=== PATIENT | male | born 1955 | race African-American/Black ===

== ENCOUNTER → 2016-09-16 | Outpatient (CLI) | payer MEDICARE, OTHER ==
[~2016-09-16] MED LIST: AMLO10TA2 PO; ASPI-247 PO; B-COCAP4 PO; BENA40TA2 PO; CLOP75TA41 PO; FURO40TA4 PO; HYDR-2651 PO; METF-312 PO; SIMV-13 PO
[2016-09-16 08:42] LABS: Albumin 3.7 g/dL (3.4-5.0); BUN/Creatinine Ratio 17.4; Calcium 9.2 mg/dL (8.5-10.1); Phosphorus 3.8 mg/dL (2.6-4.90); Potassium 3.8 mmol/L (3.5-5.1)
[2016-09-16 08:47] LABS: Basophils # (auto) 0.1 uL; Basophils % (auto) 0.6 % (0.0-2.0); DEFINITIVE VIEW TRANSMISSION; Eosinophils # (auto) 0.1 uL; Eosinophils % (auto) 1.5 % (0.0-7.0); Hematocrit 48.2 % (41.0-53.0); Hemoglobin 15.3 g/dL (13.5-17.5); Lymphocytes # (auto) 2.1 uL; Lymphocytes % (auto) 22.6 % (10.0-50.0); Mean Corpuscular Hemoglobin 25.3 pg (28.0-32.0); Mean Corpuscular Hgb Conc. 31.7 g/dL (32.0-36.0); Mean Corpuscular Volume 79.8 fL (80.0-100.0); Mean Platelet Volume 9.4 fL (7.4-10.4); Monocytes # (auto) 0.8 uL; Monocytes % (auto) 8.7 % (0.0-12.0); Neutrophils # (auto) 6.3 uL; Neutrophils % (auto) 66.6 % (37.0-80.0); Platelet Count (auto) 184 10^3/uL (140-450); Red Cell Distribution Width 16.5 % (11.6-16.0); White Blood Cell 9.4 10^3/uL (4.4-10.8)
== END | disposition home or self-care (01) ==
LOC: LAB 07:29
PROVIDERS: ATTEND Internal Medicine
DX: E11.9 Type 2 diabetes mellitus without complications (principal); I10 Essential (primary) hypertension
CPT/HCPCS: 36415; 80069; 83036; 85025; 85049

== ENCOUNTER → 2016-12-11 | Outpatient (CLI) | payer MEDICARE, OTHER ==
[2016-12-11 08:38] LABS: Urine RBC None Seen /hpf (0 - 3)
[2016-12-11 10:01] LABS: Albumin 3.3 g/dL (3.4-5.0); Bilirubin, Total 0.3 mg/dL (0.2-1.0); Potassium 3.8 mmol/L (3.5-5.1); Total Protein 7.4 g/dL (6.4-8.2)
[2016-12-11 10:41] LABS: Urine Bilirubin Negative (Negative); Urine Blood Negative /uL (Negative); Urine Color Yellow (Yellow); Urine Glucose Normal (Normal); Urine Ketone Negative (Negative); Urine Nitrite Negative (Negative); Urine Squamous Epithelial Cell FEW /hpf (<5); Urine Urobilinogen Normal (Negative)
== END | disposition home or self-care (01) ==
LOC: LAB 07:28
PROVIDERS: ATTEND Internal Medicine
DX: Z00.00 Encounter for general adult medical examination without abnormal findings (principal)
CPT/HCPCS: 36415; 80053; 80061; 81001; 82043; 83036

== ENCOUNTER → 2017-06-06 | Outpatient (CLI) | payer MEDICARE, OTHER ==
[~2017-06-06] MED LIST changes: -BENA40TA2 PO; +BENA40TA7 PO; -HYDR-2651 PO; +HYDR25TA35 PO; -METF-312 PO; +METF-370 PO
[2017-06-06 09:47] LABS: Urine Bilirubin Negative (Negative); Urine Blood Negative /uL (Negative); Urine Color Yellow (Yellow); Urine Glucose Normal (Normal); Urine Ketone Negative (Negative); Urine Nitrite Negative (Negative); Urine RBC 10 /hpf (0 - 3); Urine Squamous Epithelial Cell FEW /hpf (<5); Urine Urobilinogen Normal (Negative)
[2017-06-06 10:36] LABS: Albumin 3.6 g/dL (3.4-5.0); Bilirubin, Total 0.4 mg/dL (0.2-1.0); Calcium 8.8 mg/dL (8.5-10.1); Potassium 3.7 mmol/L (3.5-5.1); Total Protein 7.1 g/dL (6.4-8.2)
== END | disposition home or self-care (01) ==
LOC: LAB 08:35
PROVIDERS: ATTEND Internal Medicine
DX: E11.9 Type 2 diabetes mellitus without complications (principal); I10 Essential (primary) hypertension; E78.2 Mixed hyperlipidemia; N39.0 Urinary tract infection, site not specified; N40.0 Benign prostatic hyperplasia without lower urinary tract symptoms
CPT/HCPCS: 36415; 80053; 80061; 81001; 83036; 84153

== ENCOUNTER 2017-07-17 15:17 | Emergency (ER) | payer MEDICARE, OTHER ==
[~2017-07-17] VITALS: Ht 180.3 cm; Wt 117.9 kg
[2017-07-17 16:13] LABS: Eosinophils # (auto) 0.1 uL; Mean Corpuscular Hemoglobin 26.4 pg (28.0-32.0)
[2017-07-17 16:19] LABS: Albumin 3.3 g/dL (3.4-5.0); BUN/Creatinine Ratio 23.5; Bilirubin, Total 0.6 mg/dL (0.2-1.0); Calcium 8.9 mg/dL (8.5-10.1); Potassium 3.6 mmol/L (3.5-5.1); Total Protein 7.8 g/dL (6.4-8.2)
[2017-07-17 16:33] LABS: Neutrophils % (auto) 72.3 % (37.0-80.0); White Blood Cell 11.1 10^3/uL (4.4-10.8)
[2017-07-17 16:34] LABS: Basophils % (auto) 0.5 % (0.0-2.0); Eosinophils % (auto) 1.2 % (0.0-7.0); Lymphocytes % (auto) 16.7 % (10.0-50.0); Monocytes % (auto) 9.3 % (0.0-12.0)
[2017-07-17 16:35] LABS: Lymphocytes # (auto) 1.9 uL; Nucleated Red Blood Cells % 0.1 %
[2017-07-17 16:36] LABS: Basophils # (auto) 0.1 uL; Hematocrit 42.3 % (41.0-53.0); Mean Corpuscular Volume 79.9 fL (80.0-100.0)
[2017-07-17 16:37] LABS: Mean Platelet Volume 8.4 fL (6.9-10.8); Platelet Count (auto) 158 10^3/uL (140-450); Red Cell Distribution Width 15.3 % (11.8-14.3)
[2017-07-17 18:13] VITALS: BP 159/81
== END 2017-07-17 17:01 | disposition home or self-care (01) ==
LOC: ER 15:23
DX: H10.9 Unspecified conjunctivitis (principal); M79.1 Myalgia; E11.9 Type 2 diabetes mellitus without complications; E78.5 Hyperlipidemia, unspecified; I10 Essential (primary) hypertension; Z79.82 Long term (current) use of aspirin; Z79.899 Other long term (current) drug therapy; Z86.73 Personal history of transient ischemic attack (TIA), and cerebral infarction without residual deficits
CPT/HCPCS: 36415; 71020; 80053; 82150; 82962; 83690; 85025

== ENCOUNTER 2017-07-19 11:25 | Emergency (ER) | payer MEDICARE, OTHER ==
[~2017-07-19] VITALS: Ht 180.3 cm; Wt 117.9 kg
[2017-07-19 12:56] VITALS: BP 166/85
[2017-07-19] MEDS ORDERED: TETRACAINE HCL 0.5% OPTH(EYE) SOLN 4ML EACHEYE ONE (13:15)
[2017-07-19] MEDS ORDERED: FLUORESCEIN SOD 1 MG TEST STRIP OP ONE (13:15)
== END 2017-07-19 14:13 | disposition home or self-care (01) ==
LOC: ER 11:25
DX: S05.02XA Injury of conjunctiva and corneal abrasion without foreign body, left eye, initial encounter (principal); I10 Essential (primary) hypertension; E11.9 Type 2 diabetes mellitus without complications; E78.5 Hyperlipidemia, unspecified; Z79.82 Long term (current) use of aspirin; Z86.73 Personal history of transient ischemic attack (TIA), and cerebral infarction without residual deficits; X58.XXXA Exposure to other specified factors, initial encounter; Y93.89 Activity, other specified; Y92.89 Other specified places as the place of occurrence of the external cause; Y99.8 Other external cause status

== ENCOUNTER → 2017-12-16 | Outpatient (CLI) | payer MEDICARE, OTHER ==
[2017-12-16 08:09] LABS: Basophils # (auto) 0.1 uL; Basophils % (auto) 0.6 % (0.0-2.0); Lymphocytes # (auto) 1.8 uL; Mean Corpuscular Volume 78.5 fL (80.0-100.0); Monocytes # (auto) 0.6 uL; Monocytes % (auto) 7.5 % (0.0-12.0); Neutrophils % (auto) 67.2 % (37.0-80.0)
[2017-12-16 08:11] LABS: Eosinophils # (auto) 0.1 uL; Eosinophils % (auto) 1.8 % (0.0-7.0); Hematocrit 48.1 % (41.0-53.0); Hemoglobin 15.6 g/dL (13.5-17.5); Lymphocytes % (auto) 22.9 % (10.0-50.0); Mean Corpuscular Hemoglobin 25.4 pg (28.0-32.0); Mean Corpuscular Hgb Conc. 32.4 g/dL (32.0-36.0); Neutrophils # (auto) 5.3 uL; Nucleated Red Blood Cells % 0.2 %; Platelet Count (auto) 189 10^3/uL (140-450); Red Blood Cells 6.13 10^6/uL (4.5-5.90); Red Cell Distribution Width 16.1 % (11.8-14.3)
[2017-12-16 09:17] LABS: BUN/Creatinine Ratio 18.9; Bilirubin, Total 0.5 mg/dL (0.2-1.0); Calcium 9.1 mg/dL (8.5-10.1); Potassium 4.1 mmol/L (3.5-5.1); Total Protein 8.1 g/dL (6.4-8.2)
== END | disposition home or self-care (01) ==
LOC: LAB 07:44
PROVIDERS: ATTEND Physician Assistant
DX: Z12.5 Encounter for screening for malignant neoplasm of prostate (principal); I12.9 Hypertensive chronic kidney disease with stage 1 through stage 4 chronic kidney disease, or unspecified chronic kidney disease; E11.22 Type 2 diabetes mellitus with diabetic chronic kidney disease; N18.3 Chronic kidney disease, stage 3 (moderate); E78.00 Pure hypercholesterolemia, unspecified; E78.5 Hyperlipidemia, unspecified; N40.0 Benign prostatic hyperplasia without lower urinary tract symptoms; N52.9 Male erectile dysfunction, unspecified; Z79.899 Other long term (current) drug therapy; Z79.82 Long term (current) use of aspirin
CPT/HCPCS: 36415; 80053; 80061; 82306; 83036; 84153; 84403; 85025

== ENCOUNTER → 2017-12-24 | Outpatient (CLI) | payer MEDICARE, OTHER | END | disposition home or self-care (01) | LOC: LAB 09:27 | PROVIDERS: ATTEND Physician Assistant | DX: E34.9 Endocrine disorder, unspecified (principal); I12.9 Hypertensive chronic kidney disease with stage 1 through stage 4 chronic kidney disease, or unspecified chronic kidney disease; E11.22 Type 2 diabetes mellitus with diabetic chronic kidney disease; N18.3 Chronic kidney disease, stage 3 (moderate); E78.00 Pure hypercholesterolemia, unspecified; E78.5 Hyperlipidemia, unspecified; Z79.82 Long term (current) use of aspirin; Z79.899 Other long term (current) drug therapy | CPT/HCPCS: 36415; 84403 ==

== ENCOUNTER 2018-05-10 09:33 | Inpatient (IN) | payer MEDICARE, OTHER ==
[~2018-05-10] VITALS: Ht 180.3 cm; Wt 108.9 kg
[~2018-05-10 09:33] MED LIST changes: +AMLO10TA12 PO; -AMLO10TA2 PO; +HYDR-4296 PO; -HYDR25TA35 PO
[2018-05-10] MEDS ORDERED: SODIUM CHLORIDE 0.9% 1,000 ML IV ONE (11:43)
[2018-05-10 12:35] LABS: Basophils % (auto) 0.4 % (0.0-2.0); Eosinophils # (auto) 0.1 uL; Mean Corpuscular Hemoglobin 25.8 pg (28.0-32.0); Mean Corpuscular Hgb Conc. 32.6 g/dL (32.0-36.0)
[2018-05-10 12:37] LABS: Basophils # (auto) 0.1 uL; Eosinophils % (auto) 0.5 % (0.0-7.0); Hematocrit 39.2 % (41.0-53.0); Hemoglobin 12.8 g/dL (13.5-17.5); Lymphocytes # (auto) 1.4 uL; Lymphocytes % (auto) 12.3 % (10.0-50.0); Monocytes # (auto) 1.3 uL; Monocytes % (auto) 11.2 % (0.0-12.0); Neutrophils # (auto) 8.8 uL; Neutrophils % (auto) 75.6 % (37.0-80.0); Platelet Count (auto) 233 10^3/uL (140-450); Red Blood Cells 4.97 10^6/uL (4.5-5.90); White Blood Cell 11.6 10^3/uL (4.4-10.8)
[2018-05-10 13:13] LABS: Albumin 3.1 g/dL (3.4-5.0); BUN/Creatinine Ratio 12.7; Bilirubin, Total 0.7 mg/dL (0.2-1.0); Magnesium 2.7 mg/dL (1.6-2.6); Potassium 3.3 mmol/L (3.5-5.1); Total Protein 7.7 g/dL (6.4-8.2); Uric Acid 8.5 mg/dL (3.5-7.2)
[2018-05-10] MEDS ORDERED: NITROGLYCERIN 0.4 MG SL TAB SL PRN (17:00)
[2018-05-10] MEDS: InsuLIN REG 1unit/0.01ml Soln (100units/ml) SC SCH ×2 (17:00→22:24)
[2018-05-10] MEDS ORDERED: MORPHINE SULF INJ 2 MG/ML SYRINGE 1ML IV PRN ×2 (17:00)
[2018-05-10] MEDS ORDERED: ACETAMINOPHEN 325 MG TAB PO PRN (17:00)
[2018-05-10] MEDS ORDERED: DEXTROSE (50%) 50ML SYRG IV PRN (17:00)
[2018-05-10] MEDS ORDERED: ONDANSETRON HCL 4 MG/2 ML VIAL IV PRN (17:00)
[2018-05-10] MEDS ORDERED: TEMAZEPAM 15 MG CAP PO PRN (17:00)
[2018-05-10] MEDS ORDERED: DOCUSATE SOD 100 MG CAP PO PRN (17:00)
[2018-05-10] MEDS: ACCU-CHEK COMFORT CURVE STRIP VI SCH ×2 (17:21→22:24)
[2018-05-10] MEDS: HYDROcodone-ACET 5/325MG TAB PO PRN (17:51)
[2018-05-10 17:54] LABS: Urine Bacteria FEW /hpf (None Seen); Urine Blood Negative /uL (Negative); Urine Hyaline Cast FEW /lpf (0 - 2); Urine Specific Gravity 1.012 (1.001-1.035); Urine WBC 4 /hpf (0 - 3)
[2018-05-10 20:00] VITALS: BP 129/79
[2018-05-10 22:00] VITALS: BP 147/70
[2018-05-10] MEDS: SODIUM CHLOR 0.9% PF (SALINE LOCK) 10ML VIAL/SYR IV SCH (22:22)
[2018-05-10] MEDS: hydrALAZINE HCL 25 MG TAB PO SCH (22:22)
[2018-05-10] MEDS: ATORVASTATIN 20 MG TAB PO SCH (22:23)
[2018-05-10] MEDS: FAMOTIDINE 20 MG TAB PO SCH (22:25)
[2018-05-11] MEDS ORDERED: GLIP-116 PO (00:28)
[2018-05-11] MEDS ORDERED: GLIP-115 PO (00:28)
[2018-05-11] MEDS: HYDROcodone-ACET 5/325MG TAB PO PRN ×4 (01:36→20:43)
[2018-05-11 05:00] VITALS: BP 142/50
[2018-05-11] MEDS: SODIUM CHLOR 0.9% PF (SALINE LOCK) 10ML VIAL/SYR IV SCH ×3 (05:36→20:54)
[2018-05-11] MEDS: hydrALAZINE HCL 25 MG TAB PO SCH ×3 (05:37→20:56)
[2018-05-11 06:13] LABS: Basophils # (auto) 0.1 uL; Eosinophils # (auto) 0.1 uL; Eosinophils % (auto) 0.6 % (0.0-7.0); Monocytes # (auto) 1.1 uL; Neutrophils # (auto) 8.3 uL; Nucleated Red Blood Cells % 0.1 %
[2018-05-11 06:15] LABS: Basophils % (auto) 0.6 % (0.0-2.0); Hemoglobin 12.5 g/dL (13.5-17.5); Lymphocytes # (auto) 1.5 uL; Lymphocytes % (auto) 13.7 % (10.0-50.0); Mean Corpuscular Hemoglobin 26.5 pg (28.0-32.0); Mean Corpuscular Hgb Conc. 33.7 g/dL (32.0-36.0); Mean Corpuscular Volume 78.5 fL (80.0-100.0); Monocytes % (auto) 10.2 % (0.0-12.0); Neutrophils % (auto) 74.9 % (37.0-80.0); Platelet Count (auto) 222 10^3/uL (140-450); Red Blood Cells 4.71 10^6/uL (4.5-5.90); Red Cell Distribution Width 14.8 % (11.8-14.3); White Blood Cell 11.1 10^3/uL (4.4-10.8)
[2018-05-11] MEDS: InsuLIN REG 1unit/0.01ml Soln (100units/ml) SC SCH ×3 (06:28→17:00)
[2018-05-11] MEDS: ACCU-CHEK COMFORT CURVE STRIP VI SCH ×4 (06:29→20:55)
[2018-05-11 06:32] LABS: Albumin 2.7 g/dL (3.4-5.0); BUN/Creatinine Ratio 14.8; Bilirubin, Total 0.5 mg/dL (0.2-1.0); Calcium 8.8 mg/dL (8.5-10.1); Potassium 3.6 mmol/L (3.5-5.1)
[2018-05-11 08:09] VITALS: BP 147/70
[2018-05-11] MEDS ORDERED: LORazepam 2MG/ML-1ML VIAL IV PRN (08:45)
[2018-05-11] MEDS: Glucerna Carbsteady SHAKE Vanilla 8oz PO SCH ×3 (10:12→17:32)
[2018-05-11] MEDS: MULTIPLE VITAMIN TAB PO SCH (10:22)
[2018-05-11] MEDS: FAMOTIDINE 20 MG TAB PO SCH ×2 (10:22→20:55)
[2018-05-11] MEDS: B-COMPLEX W/ C & FOLIC ACID(NEPHROVITE TAB) PO SCH (10:22)
[2018-05-11] MEDS: ASPirin-EC 325mg tab PO SCH (10:22)
[2018-05-11] MEDS: FUROSEMIDE 40 MG TAB PO SCH (10:24)
[2018-05-11] MEDS: BENAZEPRIL HCL 10 MG TAB PO SCH (10:24)
[2018-05-11] MEDS: amLODIPine BESYLATE 5 MG TAB PO SCH (10:25)
[2018-05-11] MEDS: CLOPIDOGREL BISULFATE 75 MG TAB PO SCH (10:26)
[2018-05-11 12:09] VITALS: BP 106/53
[2018-05-11 17:09] VITALS: BP 126/74
[2018-05-11] MEDS: ATORVASTATIN 20 MG TAB PO SCH (20:55)
[2018-05-11 21:48] VITALS: BP 134/89
[2018-05-12] MEDS: InsuLIN REG 1unit/0.01ml Soln (100units/ml) SC SCH ×5 (00:22→21:48)
[2018-05-12 04:33] VITALS: BP 151/69
[2018-05-12] MEDS: SODIUM CHLOR 0.9% PF (SALINE LOCK) 10ML VIAL/SYR IV SCH ×3 (05:54→21:47)
[2018-05-12] MEDS: ACCU-CHEK COMFORT CURVE STRIP VI SCH ×4 (05:56→21:50)
[2018-05-12] MEDS: hydrALAZINE HCL 25 MG TAB PO SCH ×3 (06:08→21:48)
[2018-05-12] MEDS: HYDROcodone-ACET 5/325MG TAB PO PRN ×3 (06:08→19:36)
[2018-05-12 08:51] VITALS: BP 148/51
[2018-05-12] MEDS: Glucerna Carbsteady SHAKE Vanilla 8oz PO SCH ×3 (09:12→18:05)
[2018-05-12] MEDS: BENAZEPRIL HCL 10 MG TAB PO SCH (09:13)
[2018-05-12] MEDS: B-COMPLEX W/ C & FOLIC ACID(NEPHROVITE TAB) PO SCH (09:14)
[2018-05-12] MEDS: FUROSEMIDE 40 MG TAB PO SCH (09:14)
[2018-05-12] MEDS: FAMOTIDINE 20 MG TAB PO SCH ×2 (09:14→21:48)
[2018-05-12] MEDS: MULTIPLE VITAMIN TAB PO SCH (09:14)
[2018-05-12] MEDS: CLOPIDOGREL BISULFATE 75 MG TAB PO SCH (09:15)
[2018-05-12] MEDS: amLODIPine BESYLATE 5 MG TAB PO SCH (09:15)
[2018-05-12] MEDS: ASPirin-EC 325mg tab PO SCH (09:15)
[2018-05-12 13:00] VITALS: BP 150/60
[2018-05-12 16:45] VITALS: BP 136/77
[2018-05-12 21:41] VITALS: BP 126/82
[2018-05-12] MEDS: ATORVASTATIN 20 MG TAB PO SCH (21:48)
[2018-05-13 05:04] VITALS: BP 154/87
[2018-05-13] MEDS: hydrALAZINE HCL 25 MG TAB PO SCH ×3 (05:52→21:59)
[2018-05-13] MEDS: SODIUM CHLOR 0.9% PF (SALINE LOCK) 10ML VIAL/SYR IV SCH ×3 (05:52→21:59)
[2018-05-13] MEDS: InsuLIN REG 1unit/0.01ml Soln (100units/ml) SC SCH ×4 (05:53→21:59)
[2018-05-13] MEDS: ACCU-CHEK COMFORT CURVE STRIP VI SCH ×4 (05:53→22:00)
[2018-05-13 05:56] LABS: Basophils # (auto) 0.1 uL; Basophils % (auto) 0.6 % (0.0-2.0); Eosinophils # (auto) 0.1 uL; Eosinophils % (auto) 0.7 % (0.0-7.0); Hematocrit 38.7 % (41.0-53.0); Hemoglobin 12.8 g/dL (13.5-17.5); Lymphocytes # (auto) 1.4 uL; Lymphocytes % (auto) 12.3 % (10.0-50.0); Mean Corpuscular Hemoglobin 26.1 pg (28.0-32.0); Mean Corpuscular Hgb Conc. 33.1 g/dL (32.0-36.0); Mean Corpuscular Volume 79.1 fL (80.0-100.0); Monocytes # (auto) 1.1 uL; Monocytes % (auto) 9.8 % (0.0-12.0); Neutrophils % (auto) 76.6 % (37.0-80.0); Nucleated Red Blood Cells % 0.1 %; Platelet Count (auto) 269 10^3/uL (140-450); Red Blood Cells 4.89 10^6/uL (4.5-5.90); White Blood Cell 11.7 10^3/uL (4.4-10.8)
[2018-05-13 06:27] LABS: Potassium 3.6 mmol/L (3.5-5.1)
[2018-05-13 06:32] LABS: BUN/Creatinine Ratio 16.1; Calcium 8.9 mg/dL (8.5-10.1)
[2018-05-13 08:34] VITALS: BP 145/81
[2018-05-13] MEDS: Glucerna Carbsteady SHAKE Vanilla 8oz PO SCH ×3 (09:42→17:31)
[2018-05-13] MEDS: MULTIPLE VITAMIN TAB PO SCH (09:42)
[2018-05-13] MEDS: FAMOTIDINE 20 MG TAB PO SCH ×2 (09:45→21:59)
[2018-05-13] MEDS: FUROSEMIDE 40 MG TAB PO SCH (09:45)
[2018-05-13] MEDS: B-COMPLEX W/ C & FOLIC ACID(NEPHROVITE TAB) PO SCH (09:45)
[2018-05-13] MEDS: CLOPIDOGREL BISULFATE 75 MG TAB PO SCH (09:45)
[2018-05-13] MEDS: ASPirin-EC 325mg tab PO SCH (09:45)
[2018-05-13] MEDS: amLODIPine BESYLATE 5 MG TAB PO SCH (09:46)
[2018-05-13] MEDS: BENAZEPRIL HCL 10 MG TAB PO SCH (09:55)
[2018-05-13] MEDS: HYDROcodone-ACET 5/325MG TAB PO PRN ×3 (09:56→22:00)
[2018-05-13 12:14] VITALS: BP 158/62
[2018-05-13] MEDS ORDERED: methylPREDNISolone SOD SUCC 40 MG/ML VL IV ONE ×2 (13:45→14:15)
[2018-05-13 17:00] VITALS: BP 137/83
[2018-05-13] MEDS: metFORMIN HYDROCHLORIDE 500 MG TAB PO SCH (17:32)
[2018-05-13] MEDS: ATORVASTATIN 20 MG TAB PO SCH (21:59)
[2018-05-13] MEDS: COLCHICINE 0.6 MG CAP PO SCH (21:59)
[2018-05-13] MEDS: methylPREDNISolone SOD SUCC 40 MG/ML VL IV SCH (21:59)
[2018-05-13 22:00] VITALS: BP 150/69
[2018-05-14 05:00] VITALS: BP 165/78
[2018-05-14] MEDS: SODIUM CHLOR 0.9% PF (SALINE LOCK) 10ML VIAL/SYR IV SCH ×3 (06:18→22:27)
[2018-05-14] MEDS: metFORMIN HYDROCHLORIDE 500 MG TAB PO SCH (06:19)
[2018-05-14] MEDS: ACCU-CHEK COMFORT CURVE STRIP VI SCH ×4 (06:19→22:28)
[2018-05-14] MEDS: InsuLIN REG 1unit/0.01ml Soln (100units/ml) SC SCH ×4 (06:19→22:28)
[2018-05-14] MEDS: hydrALAZINE HCL 25 MG TAB PO SCH ×3 (06:19→22:27)
[2018-05-14 06:27] LABS: Basophils # (auto) 0 uL; Eosinophils # (auto) 0 uL; Hematocrit 38.8 % (41.0-53.0); Hemoglobin 12.8 g/dL (13.5-17.5); Lymphocytes # (auto) 0.9 uL; Mean Corpuscular Hemoglobin 25.9 pg (28.0-32.0); Neutrophils # (auto) 14.5 uL; Neutrophils % (auto) 92.1 % (37.0-80.0); White Blood Cell 15.7 10^3/uL (4.4-10.8)
[2018-05-14 06:30] LABS: Basophils % (auto) 0.1 % (0.0-2.0); Lymphocytes % (auto) 5.5 % (10.0-50.0); Mean Corpuscular Volume 78.4 fL (80.0-100.0); Monocytes # (auto) 0.4 uL; Monocytes % (auto) 2.3 % (0.0-12.0); Platelet Count (auto) 307 10^3/uL (140-450); Red Blood Cells 4.95 10^6/uL (4.5-5.90); Red Cell Distribution Width 15.2 % (11.8-14.3)
[2018-05-14 06:49] LABS: BUN/Creatinine Ratio 24.7; Calcium 9.4 mg/dL (8.5-10.1); Potassium 4.1 mmol/L (3.5-5.1)
[2018-05-14 08:00] VITALS: BP 156/95
[2018-05-14 09:00] VITALS: BP 156/95
[2018-05-14] MEDS: HYDROcodone-ACET 5/325MG TAB PO PRN ×2 (09:28→22:28)
[2018-05-14] MEDS: ASPirin-EC 325mg tab PO SCH (09:29)
[2018-05-14] MEDS: BENAZEPRIL HCL 10 MG TAB PO SCH (09:29)
[2018-05-14] MEDS: amLODIPine BESYLATE 5 MG TAB PO SCH (09:29)
[2018-05-14] MEDS: COLCHICINE 0.6 MG CAP PO SCH ×2 (09:29→22:27)
[2018-05-14] MEDS: B-COMPLEX W/ C & FOLIC ACID(NEPHROVITE TAB) PO SCH (09:30)
[2018-05-14] MEDS: FUROSEMIDE 40 MG TAB PO SCH (09:30)
[2018-05-14] MEDS: FAMOTIDINE 20 MG TAB PO SCH ×2 (09:30→22:27)
[2018-05-14] MEDS: MULTIPLE VITAMIN TAB PO SCH (09:30)
[2018-05-14] MEDS: CLOPIDOGREL BISULFATE 75 MG TAB PO SCH (09:30)
[2018-05-14] MEDS: Glucerna Carbsteady SHAKE Vanilla 8oz PO SCH ×3 (09:31→18:41)
[2018-05-14] MEDS: methylPREDNISolone SOD SUCC 40 MG/ML VL IV SCH (09:31)
[2018-05-14] MEDS: METOPROLOL SUCCINATE XL 50 MG TAB PO SCH (10:00)
[2018-05-14] MEDS ORDERED: ADENOSINE 105 MG in GIVE UN-DILUTED 0 ML IV ONE (10:45)
[2018-05-14 12:30] VITALS: BP 146/77
[2018-05-14 17:10] VITALS: BP 149/71
[2018-05-14 21:30] VITALS: BP_SYST 126; BP_SYST 99; BP_DIAS 60; BP_DIAS 82
[2018-05-14] MEDS: ATORVASTATIN 20 MG TAB PO SCH (22:27)
[2018-05-15 05:00] VITALS: BP 126/60
[2018-05-15 06:06] LABS: BUN/Creatinine Ratio 36.3; Calcium 8.9 mg/dL (8.5-10.1); Potassium 3.8 mmol/L (3.5-5.1)
[2018-05-15] MEDS: hydrALAZINE HCL 25 MG TAB PO SCH ×3 (06:16→22:08)
[2018-05-15] MEDS: SODIUM CHLOR 0.9% PF (SALINE LOCK) 10ML VIAL/SYR IV SCH ×3 (06:16→22:08)
[2018-05-15] MEDS: InsuLIN REG 1unit/0.01ml Soln (100units/ml) SC SCH ×4 (06:17→22:10)
[2018-05-15] MEDS: ACCU-CHEK COMFORT CURVE STRIP VI SCH ×4 (06:17→22:10)
[2018-05-15 08:00] VITALS: BP 130/69
[2018-05-15 08:31] VITALS: BP 130/69
[2018-05-15] MEDS: Glucerna Carbsteady SHAKE Vanilla 8oz PO SCH ×3 (09:23→20:16)
[2018-05-15] MEDS: predniSONE 20 MG TAB PO SCH (09:23)
[2018-05-15] MEDS: ASPirin-EC 325mg tab PO SCH (09:24)
[2018-05-15] MEDS: COLCHICINE 0.6 MG CAP PO SCH ×2 (09:24→22:10)
[2018-05-15] MEDS: B-COMPLEX W/ C & FOLIC ACID(NEPHROVITE TAB) PO SCH (09:25)
[2018-05-15] MEDS: MULTIPLE VITAMIN TAB PO SCH (09:25)
[2018-05-15] MEDS: FAMOTIDINE 20 MG TAB PO SCH ×2 (09:27→22:10)
[2018-05-15] MEDS: amLODIPine BESYLATE 5 MG TAB PO SCH (09:27)
[2018-05-15] MEDS: CLOPIDOGREL BISULFATE 75 MG TAB PO SCH (09:28)
[2018-05-15] MEDS: METOPROLOL SUCCINATE XL 50 MG TAB PO SCH (09:28)
[2018-05-15] MEDS: HYDROcodone-ACET 5/325MG TAB PO PRN ×2 (09:29→22:29)
[2018-05-15] MEDS ORDERED: BENAZEPRIL HCL 10 MG TAB PO ONE (12:30)
[2018-05-15 12:40] VITALS: BP 167/94
[2018-05-15 17:27] VITALS: BP 134/76
[2018-05-15 22:02] VITALS: BP 142/89
[2018-05-15] MEDS: RIVAROXABAN 10 MG TAB PO SCH (22:07)
[2018-05-15] MEDS: ATORVASTATIN 20 MG TAB PO SCH (22:10)
[2018-05-16 05:40] VITALS: BP 137/85
[2018-05-16 05:59] LABS: Basophils # (auto) 0 uL; Basophils % (auto) 0.2 % (0.0-2.0); Eosinophils # (auto) 0 uL; Monocytes # (auto) 1.1 uL; Red Blood Cells 4.95 10^6/uL (4.5-5.90)
[2018-05-16 06:01] LABS: Eosinophils % (auto) 0.1 % (0.0-7.0); Hemoglobin 12.4 g/dL (13.5-17.5); Lymphocytes # (auto) 2.1 uL; Lymphocytes % (auto) 15.9 % (10.0-50.0); Mean Corpuscular Hgb Conc. 31.8 g/dL (32.0-36.0); Mean Corpuscular Volume 78.8 fL (80.0-100.0); Monocytes % (auto) 7.9 % (0.0-12.0); Neutrophils # (auto) 10.1 uL; Neutrophils % (auto) 75.9 % (37.0-80.0); Platelet Count (auto) 349 10^3/uL (140-450); Red Cell Distribution Width 15.3 % (11.8-14.3); White Blood Cell 13.3 10^3/uL (4.4-10.8)
[2018-05-16 06:22] LABS: Calcium 8.3 mg/dL (8.5-10.1); Potassium 4.1 mmol/L (3.5-5.1)
[2018-05-16] MEDS: hydrALAZINE HCL 25 MG TAB PO SCH ×3 (06:35→21:35)
[2018-05-16] MEDS: ACCU-CHEK COMFORT CURVE STRIP VI SCH ×4 (06:36→21:36)
[2018-05-16] MEDS: SODIUM CHLOR 0.9% PF (SALINE LOCK) 10ML VIAL/SYR IV SCH ×3 (06:36→21:31)
[2018-05-16] MEDS: InsuLIN REG 1unit/0.01ml Soln (100units/ml) SC SCH ×4 (06:36→21:31)
[2018-05-16 08:00] VITALS: BP 125/76
[2018-05-16 08:47] VITALS: BP 125/76
[2018-05-16] MEDS: MULTIPLE VITAMIN TAB PO SCH (09:30)
[2018-05-16] MEDS: amLODIPine BESYLATE 5 MG TAB PO SCH (09:30)
[2018-05-16] MEDS: BENAZEPRIL HCL 10 MG TAB PO SCH (09:30)
[2018-05-16] MEDS: COLCHICINE 0.6 MG CAP PO SCH ×2 (09:31→21:32)
[2018-05-16] MEDS: predniSONE 20 MG TAB PO SCH (09:31)
[2018-05-16] MEDS: CLOPIDOGREL BISULFATE 75 MG TAB PO SCH (09:31)
[2018-05-16] MEDS: B-COMPLEX W/ C & FOLIC ACID(NEPHROVITE TAB) PO SCH (09:31)
[2018-05-16] MEDS: FAMOTIDINE 20 MG TAB PO SCH ×2 (09:31→21:32)
[2018-05-16] MEDS: METOPROLOL SUCCINATE XL 50 MG TAB PO SCH (09:32)
[2018-05-16] MEDS: HYDROcodone-ACET 5/325MG TAB PO PRN ×2 (09:32→21:38)
[2018-05-16] MEDS: Glucerna Carbsteady SHAKE Vanilla 8oz PO SCH ×3 (09:33→18:01)
[2018-05-16 12:30] VITALS: BP 126/57
[2018-05-16 16:24] VITALS: BP 127/71
[2018-05-16] MEDS: RIVAROXABAN 10 MG TAB PO SCH (17:59)
[2018-05-16] MEDS: ATORVASTATIN 20 MG TAB PO SCH (21:32)
[2018-05-16 22:00] VITALS: BP 144/56
[2018-05-17 04:50] VITALS: BP 167/83
[2018-05-17] MEDS: ACCU-CHEK COMFORT CURVE STRIP VI SCH ×4 (06:16→22:24)
[2018-05-17] MEDS: hydrALAZINE HCL 25 MG TAB PO SCH ×3 (06:16→22:27)
[2018-05-17] MEDS: SODIUM CHLOR 0.9% PF (SALINE LOCK) 10ML VIAL/SYR IV SCH ×3 (06:16→22:23)
[2018-05-17] MEDS: InsuLIN REG 1unit/0.01ml Soln (100units/ml) SC SCH ×4 (06:17→22:24)
[2018-05-17 08:27] VITALS: BP 147/51
[2018-05-17] MEDS: Glucerna Carbsteady SHAKE Vanilla 8oz PO SCH ×3 (08:44→18:09)
[2018-05-17] MEDS: amLODIPine BESYLATE 5 MG TAB PO SCH (09:35)
[2018-05-17] MEDS: B-COMPLEX W/ C & FOLIC ACID(NEPHROVITE TAB) PO SCH (09:35)
[2018-05-17] MEDS: MULTIPLE VITAMIN TAB PO SCH (09:35)
[2018-05-17] MEDS: FAMOTIDINE 20 MG TAB PO SCH ×2 (09:35→22:27)
[2018-05-17] MEDS: CLOPIDOGREL BISULFATE 75 MG TAB PO SCH (09:35)
[2018-05-17] MEDS: COLCHICINE 0.6 MG CAP PO SCH ×2 (09:35→22:27)
[2018-05-17] MEDS: predniSONE 20 MG TAB PO SCH (09:36)
[2018-05-17] MEDS: BENAZEPRIL HCL 10 MG TAB PO SCH (09:36)
[2018-05-17] MEDS: METOPROLOL SUCCINATE XL 50 MG TAB PO SCH (09:39)
[2018-05-17 12:16] VITALS: BP 134/70
[2018-05-17 14:05] LABS: INR 1.07 (0.9-1.15); Partial Thromboplastin Time 26.2 sec (23.78-33.04); Prothrombin Time 11.4 sec (9.27-12.13)
[2018-05-17] MEDS: RIVAROXABAN 10 MG TAB PO SCH (17:12)
[2018-05-17 17:36] VITALS: BP 141/66
[2018-05-17] MEDS: ATORVASTATIN 20 MG TAB PO SCH (22:27)
[2018-05-17] MEDS: HYDROcodone-ACET 5/325MG TAB PO PRN (23:23)
[2018-05-18] MEDS ORDERED: SODIUM CHLORIDE 0.9% 1,000 ML IV ONE
[2018-05-18 04:25] VITALS: BP 157/63
[2018-05-18] MEDS: InsuLIN REG 1unit/0.01ml Soln (100units/ml) SC SCH ×4 (07:00→21:27)
[2018-05-18] MEDS: hydrALAZINE HCL 25 MG TAB PO SCH ×3 (07:19→21:26)
[2018-05-18] MEDS: ACCU-CHEK COMFORT CURVE STRIP VI SCH ×4 (07:19→21:27)
[2018-05-18] MEDS: SODIUM CHLOR 0.9% PF (SALINE LOCK) 10ML VIAL/SYR IV SCH ×3 (07:21→21:25)
[2018-05-18] MEDS: Glucerna Carbsteady SHAKE Vanilla 8oz PO SCH ×3 (08:00→17:46)
[2018-05-18 08:10] VITALS: BP 152/89
[2018-05-18 08:17] VITALS: BP 152/89
[2018-05-18] MEDS: METOPROLOL SUCCINATE XL 50 MG TAB PO SCH (09:46)
[2018-05-18] MEDS: FAMOTIDINE 20 MG TAB PO SCH ×2 (09:47→21:27)
[2018-05-18] MEDS: CLOPIDOGREL BISULFATE 75 MG TAB PO SCH (09:48)
[2018-05-18] MEDS: COLCHICINE 0.6 MG CAP PO SCH ×2 (09:48→21:26)
[2018-05-18] MEDS: amLODIPine BESYLATE 5 MG TAB PO SCH (09:48)
[2018-05-18] MEDS: B-COMPLEX W/ C & FOLIC ACID(NEPHROVITE TAB) PO SCH (09:49)
[2018-05-18] MEDS: MULTIPLE VITAMIN TAB PO SCH (09:49)
[2018-05-18] MEDS: predniSONE 20 MG TAB PO SCH (09:49)
[2018-05-18] MEDS: BENAZEPRIL HCL 10 MG TAB PO SCH (09:50)
[2018-05-18] MEDS ORDERED: IODIXANOL 320MG/ML 100ML BTL IV ONE (10:51)
[2018-05-18] MEDS ORDERED: LIDOCAINE 2%HCL (LOCAL ANESTH.) INJ 20ML MDV ONE (10:58)
[2018-05-18 12:24] VITALS: BP 134/75
[2018-05-18] MEDS ORDERED: fentaNYL CITRATE 100 MCG/2 ML VL ONE (12:31)
[2018-05-18] MEDS ORDERED: ANGIOMAX 250 MG VIAL IV ONE (12:31)
[2018-05-18] MEDS ORDERED: SODIUM CHL 0.9% 50 ML ONE (12:32)
[2018-05-18] MEDS ORDERED: MIDAZOLAM HCL 1MG/1ML-2 ML VIAL ONE (12:32)
[2018-05-18 16:52] VITALS: BP 151/75
[2018-05-18] MEDS: RIVAROXABAN 10 MG TAB PO SCH (17:46)
[2018-05-18] MEDS: ATORVASTATIN 20 MG TAB PO SCH (21:27)
[2018-05-18 22:00] VITALS: BP 152/78
[2018-05-19 05:31] VITALS: BP 140/79
[2018-05-19] MEDS: SODIUM CHLOR 0.9% PF (SALINE LOCK) 10ML VIAL/SYR IV SCH ×3 (06:18→22:20)
[2018-05-19] MEDS: InsuLIN REG 1unit/0.01ml Soln (100units/ml) SC SCH ×4 (06:19→22:28)
[2018-05-19] MEDS: ACCU-CHEK COMFORT CURVE STRIP VI SCH ×4 (06:19→22:20)
[2018-05-19] MEDS: hydrALAZINE HCL 25 MG TAB PO SCH ×3 (06:19→22:20)
[2018-05-19] MEDS: Glucerna Carbsteady SHAKE Vanilla 8oz PO SCH ×3 (08:00→17:30)
[2018-05-19] MEDS: FAMOTIDINE 20 MG TAB PO SCH ×2 (09:17→22:28)
[2018-05-19] MEDS: COLCHICINE 0.6 MG CAP PO SCH ×2 (09:18→22:20)
[2018-05-19] MEDS: MULTIPLE VITAMIN TAB PO SCH (09:18)
[2018-05-19] MEDS: CLOPIDOGREL BISULFATE 75 MG TAB PO SCH (09:19)
[2018-05-19 09:26] VITALS: BP 139/71
[2018-05-19] MEDS: amLODIPine BESYLATE 5 MG TAB PO SCH (09:28)
[2018-05-19] MEDS: BENAZEPRIL HCL 10 MG TAB PO SCH (09:31)
[2018-05-19] MEDS: B-COMPLEX W/ C & FOLIC ACID(NEPHROVITE TAB) PO SCH (09:33)
[2018-05-19] MEDS: METOPROLOL SUCCINATE XL 50 MG TAB PO SCH (09:35)
[2018-05-19] MEDS ORDERED: predniSONE 20 MG TAB PO SCH (10:00)
[2018-05-19 12:30] VITALS: BP 146/52
[2018-05-19 16:46] VITALS: BP 132/92
[2018-05-19] MEDS: RIVAROXABAN 10 MG TAB PO SCH (17:28)
[2018-05-19] MEDS: ATORVASTATIN 20 MG TAB PO SCH (22:20)
[2018-05-19 22:22] VITALS: BP 143/75
[2018-05-19] MEDS: HYDROcodone-ACET 5/325MG TAB PO PRN (22:29)
[2018-05-20 04:48] VITALS: BP 134/71
[2018-05-20] MEDS: hydrALAZINE HCL 25 MG TAB PO SCH ×2 (05:59→14:00)
[2018-05-20] MEDS: SODIUM CHLOR 0.9% PF (SALINE LOCK) 10ML VIAL/SYR IV SCH ×2 (05:59→14:00)
[2018-05-20] MEDS: ACCU-CHEK COMFORT CURVE STRIP VI SCH ×3 (05:59→17:00)
[2018-05-20] MEDS: InsuLIN REG 1unit/0.01ml Soln (100units/ml) SC SCH ×3 (06:31→17:00)
[2018-05-20] MEDS: MEPERIDINE HCL (50 MG/ML) 1 ML VIAL IV PRN ×6 (07:30→17:58)
[2018-05-20 08:00] VITALS: BP 134/81
[2018-05-20] MEDS: Glucerna Carbsteady SHAKE Vanilla 8oz PO SCH ×3 (08:00→17:45)
[2018-05-20] MEDS: HYDROcodone-ACET 5/325MG TAB PO PRN ×3 (09:20→17:00)
[2018-05-20] MEDS: MULTIPLE VITAMIN TAB PO SCH (09:40)
[2018-05-20] MEDS: B-COMPLEX W/ C & FOLIC ACID(NEPHROVITE TAB) PO SCH (09:41)
[2018-05-20] MEDS: FAMOTIDINE 20 MG TAB PO SCH (09:41)
[2018-05-20] MEDS: CLOPIDOGREL BISULFATE 75 MG TAB PO SCH (09:41)
[2018-05-20] MEDS: METOPROLOL SUCCINATE XL 50 MG TAB PO SCH (09:42)
[2018-05-20] MEDS: COLCHICINE 0.6 MG CAP PO SCH (09:42)
[2018-05-20] MEDS: amLODIPine BESYLATE 5 MG TAB PO SCH (09:43)
[2018-05-20] MEDS: BENAZEPRIL HCL 10 MG TAB PO SCH (09:43)
[2018-05-20] MEDS ORDERED: predniSONE 20 MG TAB PO SCH (10:00)
[2018-05-20 12:00] VITALS: BP 136/82
[2018-05-20 14:35] VITALS: BP 139/81
[2018-05-20 17:31] VITALS: BP 136/99
[2018-05-20] MEDS: RIVAROXABAN 10 MG TAB PO SCH (18:00)
[2018-05-20] MEDS ORDERED: MEPERIDINE HCL (50 MG/ML) 1 ML VIAL IM ONE (18:00)
== END 2018-05-20 19:35 | disposition home health service (06) | DRG 246 ==
LOC: ER 09:33 → TELE 09:34 → TELE-WESTW 18:55
PROVIDERS: ADMIT Internal Medicine; ATTEND Internal Medicine
PROC: 0S9C3ZZ Drainage of Right Knee Joint, Percutaneous Approach (ICD-10-PCS; principal; 2018-05-16)
PROC: 027034Z Dilation of Coronary Artery, One Artery with Drug-eluting Intraluminal Device, Percutaneous Approach (ICD-10-PCS; 2018-05-18)
PROC: 4A023N7 Measurement of Cardiac Sampling and Pressure, Left Heart, Percutaneous Approach (ICD-10-PCS; 2018-05-18)
PROC: B2111ZZ Fluoroscopy of Multiple Coronary Arteries using Low Osmolar Contrast (ICD-10-PCS; 2018-05-18)
DX: I25.10 Atherosclerotic heart disease of native coronary artery without angina pectoris (principal); E43 Unspecified severe protein-calorie malnutrition; N17.0 Acute kidney failure with tubular necrosis; I69.354 Hemiplegia and hemiparesis following cerebral infarction affecting left non-dominant side; M10.361 Gout due to renal impairment, right knee; E87.6 Hypokalemia; W18.30XA Fall on same level, unspecified, initial encounter; N18.3 Chronic kidney disease, stage 3 (moderate); I12.9 Hypertensive chronic kidney disease with stage 1 through stage 4 chronic kidney disease, or unspecified chronic kidney disease; D50.9 Iron deficiency anemia, unspecified; E11.21 Type 2 diabetes mellitus with diabetic nephropathy; E11.22 Type 2 diabetes mellitus with diabetic chronic kidney disease; E66.01 Morbid (severe) obesity due to excess calories; E78.5 Hyperlipidemia, unspecified; E83.41 Hypermagnesemia; F17.200 Nicotine dependence, unspecified, uncomplicated; I48.91 Unspecified atrial fibrillation; I08.0 Rheumatic disorders of both mitral and aortic valves; M54.5 Low back pain; I70.0 Atherosclerosis of aorta; M19.90 Unspecified osteoarthritis, unspecified site; M43.16 Spondylolisthesis, lumbar region; M25.461 Effusion, right knee; M51.36 Other intervertebral disc degeneration, lumbar region; R29.6 Repeated falls; Z79.02 Long term (current) use of antithrombotics/antiplatelets; Z79.82 Long term (current) use of aspirin; Z79.899 Other long term (current) drug therapy; Z82.49 Family history of ischemic heart disease and other diseases of the circulatory system; Z91.81 History of falling; Z95.5 Presence of coronary angioplasty implant and graft; Z68.33 Body mass index [BMI] 33.0-33.9, adult
CPT/HCPCS: 36415; 70450; 71045; 72131; 73562; 73700; 80048; 80053; 81001; 82533; 82962; 83036; 83540; 83735; 84443; 84550; 85025; 85610; 85730; 86850; 86900; 86901; 87205; 89051; 89060; 92928; 93005; 93306; 93458; 93886; 97110; 97163; 97530; 99152; A6257; C1874; J0153; J1815; J2250; Q9967

== ENCOUNTER → 2018-06-15 | Outpatient (CLI) | payer MEDICARE, OTHER ==
[~2018-06-15] MED LIST changes: -AMLO10TA12 PO; -B-COCAP4 PO; +GLIP-115 PO; +GLIP-116 PO; -METF-370 PO
== END | disposition home or self-care (01) ==
LOC: Rad HDHVI 14:11
PROVIDERS: ATTEND Internal Medicine Cardiovascular Disease
DX: I08.0 Rheumatic disorders of both mitral and aortic valves (principal); I10 Essential (primary) hypertension; I48.91 Unspecified atrial fibrillation; I25.10 Atherosclerotic heart disease of native coronary artery without angina pectoris
CPT/HCPCS: 93306

== ENCOUNTER → 2018-07-09 | Outpatient (CLI) | payer MEDICARE, OTHER ==
[~2018-07-09] VITALS: Ht 181.6 cm; Wt 117.9 kg
[~2018-07-09] MED LIST changes: +ADENOSINE 90 MG/30 ML INJ IV ONE; +ADENOSINE 99 MG in GIVE UN-DILUTED 0 ML IV ONE
== END | disposition home or self-care (01) ==
LOC: Rad HDHVI 09:14
PROVIDERS: ATTEND Internal Medicine Cardiovascular Disease
DX: I10 Essential (primary) hypertension (principal); E78.00 Pure hypercholesterolemia, unspecified; E11.9 Type 2 diabetes mellitus without complications; Z79.899 Other long term (current) drug therapy
CPT/HCPCS: 78452; 93005; 96374; 96375; A9500; J0153

== ENCOUNTER → 2018-11-10 | Outpatient (CLI) | payer MEDICARE, OTHER ==
[~2018-11-10] MED LIST changes: -ADENOSINE 90 MG/30 ML INJ IV ONE; -ADENOSINE 99 MG in GIVE UN-DILUTED 0 ML IV ONE
[2018-11-10 10:39] LABS: Eosinophils # (auto) 0.1 uL; Hematocrit 49.8 % (41.0-53.0); Mean Corpuscular Hemoglobin 25.9 pg (28.0-32.0); Monocytes # (auto) 0.8 uL; Monocytes % (auto) 9.3 % (0.0-12.0); Neutrophils # (auto) 5.7 uL; Nucleated Red Blood Cells % 0.1 %; White Blood Cell 8.5 10^3/uL (4.4-10.8)
[2018-11-10 10:41] LABS: Basophils # (auto) 0.1 uL; Basophils % (auto) 0.8 % (0.0-2.0); Eosinophils % (auto) 1.6 % (0.0-7.0); Hemoglobin 16.3 g/dL (13.5-17.5); Lymphocytes # (auto) 1.8 uL; Lymphocytes % (auto) 21.1 % (10.0-50.0); Mean Corpuscular Hgb Conc. 32.7 g/dL (32.0-36.0); Mean Corpuscular Volume 79.2 fL (80.0-100.0); Neutrophils % (auto) 67.2 % (37.0-80.0); Platelet Count (auto) 150 10^3/uL (140-450); Red Blood Cells 6.29 10^6/uL (4.5-5.90); Red Cell Distribution Width 15.6 % (11.8-14.3)
[2018-11-10 10:51] LABS: Urine Bacteria NONE SEEN /hpf (None Seen); Urine Blood Negative /uL (Negative); Urine Hyaline Cast FEW /lpf (0 - 2); Urine Specific Gravity 1.009 (1.001-1.035); Urine WBC 4 /hpf (0 - 3)
[2018-11-10 11:19] LABS: Potassium 3.9 mmol/L (3.5-5.1)
[2018-11-10 11:33] LABS: Albumin 3.6 g/dL (3.4-5.0); BUN/Creatinine Ratio 16.8; Bilirubin, Total 0.5 mg/dL (0.2-1.0); Total Protein 7.2 g/dL (6.4-8.2)
== END | disposition home or self-care (01) ==
LOC: LAB 09:56
PROVIDERS: ATTEND Physician Assistant
DX: E11.65 Type 2 diabetes mellitus with hyperglycemia (principal); I12.9 Hypertensive chronic kidney disease with stage 1 through stage 4 chronic kidney disease, or unspecified chronic kidney disease; E11.22 Type 2 diabetes mellitus with diabetic chronic kidney disease; N18.9 Chronic kidney disease, unspecified; N40.0 Benign prostatic hyperplasia without lower urinary tract symptoms; E29.1 Testicular hypofunction; I63.19 Cerebral infarction due to embolism of other precerebral artery; E55.9 Vitamin D deficiency, unspecified
CPT/HCPCS: 36415; 80053; 80061; 81001; 82306; 83036; 84153; 84403; 85025

== ENCOUNTER → 2019-02-09 | Outpatient (CLI) | payer MEDICARE, OTHER ==
[~2019-02-09] MED LIST changes: +ATOR20TA50 PO; -SIMV-13 PO
== END | disposition home or self-care (01) ==
LOC: Rad HDHVI 09:47
PROVIDERS: ATTEND Internal Medicine Cardiovascular Disease
DX: I08.3 Combined rheumatic disorders of mitral, aortic and tricuspid valves (principal); R06.02 Shortness of breath; R42 Dizziness and giddiness; I12.9 Hypertensive chronic kidney disease with stage 1 through stage 4 chronic kidney disease, or unspecified chronic kidney disease; E11.22 Type 2 diabetes mellitus with diabetic chronic kidney disease; N18.9 Chronic kidney disease, unspecified
CPT/HCPCS: 93306

== ENCOUNTER → 2019-06-09 | Outpatient (CLI) | payer MEDICARE, OTHER ==
[~2019-06-09] MED LIST changes: -GLIP-115 PO; -GLIP-116 PO; +GLIP10TA9 PO; +GLIP5TAB12 PO
[2019-06-09 07:49] LABS: Urine Bacteria NONE SEEN /hpf (None Seen); Urine Blood Negative /uL (Negative); Urine Hyaline Cast FEW /lpf (0 - 2); Urine Mucus FEW (None Seen); Urine Specific Gravity 1.011 (1.001-1.035); Urine WBC 5 /hpf (0 - 3)
== END | disposition home or self-care (01) ==
LOC: LAB 07:09
PROVIDERS: ATTEND Physician Assistant
DX: E11.65 Type 2 diabetes mellitus with hyperglycemia (principal); E55.9 Vitamin D deficiency, unspecified; E34.9 Endocrine disorder, unspecified
CPT/HCPCS: 36415; 81001; 82306; 84403

== ENCOUNTER → 2019-08-19 | Outpatient (CLI) | payer MEDICARE, OTHER | END | disposition home or self-care (01) | LOC: Rad HDHVI 10:53 | PROVIDERS: ATTEND Internal Medicine Cardiovascular Disease | DX: I08.0 Rheumatic disorders of both mitral and aortic valves (principal); I25.10 Atherosclerotic heart disease of native coronary artery without angina pectoris; I69.30 Unspecified sequelae of cerebral infarction; I48.91 Unspecified atrial fibrillation | CPT/HCPCS: 93306 ==

== ENCOUNTER → 2019-08-20 | Outpatient (CLI) | payer MEDICARE, OTHER ==
[~2019-08-20] VITALS: Ht 182.9 cm; Wt 113.4 kg
[~2019-08-20] MED LIST changes: +ADENOSINE 90 MG/30 ML INJ IV ONE; +ADENOSINE 95 MG in GIVE UN-DILUTED 0 ML IV ONE
[2019-08-20 12:23] LABS: Urine Blood Negative /uL (Negative); Urine Specific Gravity 1.013 (1.001-1.035)
[2019-08-20 12:30] LABS: Basophils # (auto) 0.1 uL; Eosinophils # (auto) 0.1 uL; Lymphocytes # (auto) 1.6 uL; Monocytes # (auto) 0.8 uL; Monocytes % (auto) 10.5 % (0.0-12.0); Neutrophils # (auto) 4.7 uL
[2019-08-20 12:32] LABS: Basophils % (auto) 0.7 % (0.0-2.0); Eosinophils % (auto) 1.3 % (0.0-7.0); Hematocrit 41.4 % (41.0-53.0); Hemoglobin 13.7 g/dL (13.5-17.5); Lymphocytes % (auto) 22.4 % (10.0-50.0); Mean Corpuscular Hemoglobin 25.5 pg (28.0-32.0); Mean Corpuscular Volume 77.3 fL (80.0-100.0); Neutrophils % (auto) 65.1 % (37.0-80.0); Nucleated Red Blood Cells % 0.1 %; Platelet Count (auto) 169 10^3/uL (140-450); Red Blood Cells 5.36 10^6/uL (4.5-5.90); Red Cell Distribution Width 16.9 % (11.8-14.3); White Blood Cell 7.3 10^3/uL (4.4-10.8)
[2019-08-20 12:35] LABS: Albumin 3.5 g/dL (3.4-5.0); Calcium 9.5 mg/dL (8.5-10.1)
[2019-08-20 12:42] LABS: BUN/Creatinine Ratio 21.1; Bilirubin, Total 0.5 mg/dL (0.2-1.0); Total Protein 7.9 g/dL (6.4-8.2)
== END | disposition home or self-care (01) ==
LOC: Rad HDHVI 08:59
PROVIDERS: ATTEND Internal Medicine Cardiovascular Disease
DX: I10 Essential (primary) hypertension (principal); E11.42 Type 2 diabetes mellitus with diabetic polyneuropathy; R07.89 Other chest pain; R06.02 Shortness of breath; E66.9 Obesity, unspecified; E03.9 Hypothyroidism, unspecified; K90.9 Intestinal malabsorption, unspecified; C61 Malignant neoplasm of prostate; N39.0 Urinary tract infection, site not specified; D51.9 Vitamin B12 deficiency anemia, unspecified; E78.00 Pure hypercholesterolemia, unspecified; I25.2 Old myocardial infarction; Z79.899 Other long term (current) drug therapy; Z95.820 Peripheral vascular angioplasty status with implants and grafts
CPT/HCPCS: 36415; 78452; 80053; 80061; 81003; 82306; 82607; 83036; 84403; 84439; 84443; 85025; 93005; 96374; 96375; A9500; J0153

== ENCOUNTER → 2019-10-20 | Outpatient (CLI) | payer MEDICARE, OTHER ==
[~2019-10-20] MED LIST changes: -ADENOSINE 90 MG/30 ML INJ IV ONE; -ADENOSINE 95 MG in GIVE UN-DILUTED 0 ML IV ONE
== END | disposition home or self-care (01) ==
LOC: LAB 10:33
PROVIDERS: ATTEND Internal Medicine Cardiovascular Disease
DX: E11.9 Type 2 diabetes mellitus without complications (principal); Z79.899 Other long term (current) drug therapy
CPT/HCPCS: 36415; 83036

== ENCOUNTER → 2019-12-22 | Outpatient (CLI) | payer MEDICARE, OTHER | END | disposition home or self-care (01) | LOC: LAB 08:55 | PROVIDERS: ATTEND Internal Medicine Cardiovascular Disease | DX: E11.9 Type 2 diabetes mellitus without complications (principal); Z79.899 Other long term (current) drug therapy | CPT/HCPCS: 36415; 83036 ==

== ENCOUNTER → 2020-02-23 | Outpatient (CLI) | payer MEDICARE, OTHER | END | disposition home or self-care (01) | LOC: LAB 10:21 | PROVIDERS: ATTEND Internal Medicine Cardiovascular Disease | DX: E03.9 Hypothyroidism, unspecified (principal); K90.9 Intestinal malabsorption, unspecified; C61 Malignant neoplasm of prostate; E29.1 Testicular hypofunction; N39.0 Urinary tract infection, site not specified; D51.9 Vitamin B12 deficiency anemia, unspecified; Z79.899 Other long term (current) drug therapy | CPT/HCPCS: 36415; 83036 ==

== ENCOUNTER → 2020-03-22 | Outpatient (CLI) | payer MEDICARE, OTHER ==
[2020-03-22 07:45] LABS: Basophils # (auto) 0.1 10 ^3/uL (0-0.2); Eosinophils # (auto) 0.2 10 ^3/uL (0-0.8); Mean Corpuscular Volume 77.6 fL (80.0-100.0); Monocytes # (auto) 0.8 10 ^3/uL (0-1.3); Neutrophils # (auto) 5.1 10 ^3/uL (1.6-8.6); Nucleated Red Blood Cells % 0.2 %; Urine Bacteria NONE SEEN /hpf (None Seen); Urine Blood Negative /uL (Negative); Urine Specific Gravity 1.014 (1.001-1.035); Urine WBC 9 /hpf (0 - 3)
[2020-03-22 07:47] LABS: Basophils % (auto) 0.9 % (0.0-2.0); Eosinophils % (auto) 2.1 % (0.0-7.0); Hematocrit 46.8 % (41.0-53.0); Hemoglobin 15.1 g/dL (13.5-17.5); Lymphocytes # (auto) 2.2 10 ^3/uL (0.4-5.4); Lymphocytes % (auto) 26.5 % (10.0-50.0); Mean Corpuscular Hemoglobin 25.1 pg (28.0-32.0); Mean Corpuscular Hgb Conc. 32.4 g/dL (32.0-36.0); Monocytes % (auto) 9.7 % (0.0-12.0); Neutrophils % (auto) 60.8 % (37.0-80.0); Platelet Count (auto) 168 10^3/uL (140-450); Red Blood Cells 6.02 10^6/uL (4.5-5.90); Red Cell Distribution Width 16.2 % (11.8-14.3); White Blood Cell 8.4 10^3/uL (4.4-10.8)
[2020-03-22 08:20] LABS: Albumin 3.6 g/dL (3.4-5.0); Calcium 9.5 mg/dL (8.5-10.1); Potassium 3.7 mmol/L (3.5-5.1)
[2020-03-22 08:26] LABS: BUN/Creatinine Ratio 31.6; Bilirubin, Total 0.4 mg/dL (0.2-1.0); Total Protein 7.7 g/dL (6.4-8.2)
== END | disposition home or self-care (01) ==
LOC: LAB 07:06
PROVIDERS: ATTEND Physician Assistant
DX: E11.65 Type 2 diabetes mellitus with hyperglycemia (principal); E34.9 Endocrine disorder, unspecified; R35.1 Nocturia; E78.2 Mixed hyperlipidemia; E11.42 Type 2 diabetes mellitus with diabetic polyneuropathy; I25.10 Atherosclerotic heart disease of native coronary artery without angina pectoris; N40.0 Benign prostatic hyperplasia without lower urinary tract symptoms; E55.9 Vitamin D deficiency, unspecified
CPT/HCPCS: 36415; 80053; 80061; 81001; 83036; 84403; 85025

== ENCOUNTER → 2020-07-31 | Outpatient (CLI) | payer MEDICARE, OTHER ==
[2020-07-31 12:23] LABS: Basophils # (auto) 0.1 10 ^3/uL (0-0.2); Basophils % (auto) 1.1 % (0.0-2.0); Eosinophils # (auto) 0.1 10 ^3/uL (0-0.8); Hemoglobin 15.5 g/dL (13.5-17.5); Lymphocytes # (auto) 2.1 10 ^3/uL (0.4-5.4); Neutrophils # (auto) 4.9 10 ^3/uL (1.6-8.6)
[2020-07-31 12:25] LABS: Eosinophils % (auto) 1.4 % (0.0-7.0); Hematocrit 46.9 % (41.0-53.0); Lymphocytes % (auto) 26.5 % (10.0-50.0); Mean Corpuscular Hemoglobin 26.1 pg (28.0-32.0); Mean Corpuscular Volume 79.1 fL (80.0-100.0); Monocytes # (auto) 0.8 10 ^3/uL (0-1.3); Monocytes % (auto) 9.6 % (0.0-12.0); Neutrophils % (auto) 61.4 % (37.0-80.0); Nucleated Red Blood Cells % 0.1 %; Platelet Count (auto) 191 10^3/uL (140-450); Potassium 3.5 mmol/L (3.5-5.1); Red Blood Cells 5.94 10^6/uL (4.5-5.90); Red Cell Distribution Width 14.9 % (11.8-14.3)
[2020-07-31 12:33] LABS: Albumin 3.9 g/dL (3.4-5.0); BUN/Creatinine Ratio 24.1; Bilirubin, Total 0.4 mg/dL (0.2-1.0); Calcium 9.5 mg/dL (8.5-10.1)
[2020-07-31 13:44] LABS: Urine Blood Negative /uL (Negative); Urine Specific Gravity 1.008 (1.001-1.035)
[2020-07-31 15:54] LABS: Free T4 (Free Thyroxine) 1.2 ng/dL (0.89-1.76); Prostate Specific Antigen 1.5 ng/mL (0.0-4.0)
== END | disposition home or self-care (01) ==
LOC: LAB 08:27
PROVIDERS: ATTEND Internal Medicine Cardiovascular Disease
DX: C61 Malignant neoplasm of prostate (principal); D51.3 Other dietary vitamin B12 deficiency anemia; I10 Essential (primary) hypertension; E11.9 Type 2 diabetes mellitus without complications; E55.9 Vitamin D deficiency, unspecified; D64.9 Anemia, unspecified; R00.2 Palpitations; R53.1 Weakness; R30.0 Dysuria
CPT/HCPCS: 36415; 80053; 80061; 81003; 82306; 82607; 83036; 84153; 84403; 84439; 84443; 85025

== ENCOUNTER → 2020-08-09 | Outpatient (CLI) | payer MEDICARE, OTHER ==
[~2020-08-09] VITALS: Ht 181.6 cm; Wt 108.9 kg
[~2020-08-09] MED LIST changes: +ADENOSINE 90 MG/30 ML INJ IV ONE; +ADENOSINE 91 MG in GIVE UN-DILUTED 0 ML IV ONE
== END | disposition home or self-care (01) ==
LOC: Rad HDHVI 09:34
PROVIDERS: ATTEND Internal Medicine Cardiovascular Disease
DX: I25.10 Atherosclerotic heart disease of native coronary artery without angina pectoris (principal); I10 Essential (primary) hypertension; E78.00 Pure hypercholesterolemia, unspecified; E11.9 Type 2 diabetes mellitus without complications
CPT/HCPCS: 78452; 93005; 96374; 96375; A9500; J0153

== ENCOUNTER → 2020-08-14 | Outpatient (CLI) | payer MEDICARE, OTHER ==
[~2020-08-14] MED LIST changes: -ADENOSINE 90 MG/30 ML INJ IV ONE; -ADENOSINE 91 MG in GIVE UN-DILUTED 0 ML IV ONE
== END | disposition home or self-care (01) ==
LOC: Rad HDHVI 09:48
PROVIDERS: ATTEND Internal Medicine Cardiovascular Disease
DX: I25.10 Atherosclerotic heart disease of native coronary artery without angina pectoris (principal); I48.91 Unspecified atrial fibrillation
CPT/HCPCS: 93306

== ENCOUNTER → 2021-02-22 | Outpatient (CLI) | payer MEDICARE, OTHER ==
[~2021-02-22] MED LIST changes: -BENA40TA7 PO; +BENA40TA8 PO; -CLOP75TA41 PO; +CLOP75TA70 PO
[2021-02-22 12:01] LABS: Basophils # (auto) 0.1 10 ^3/uL (0-0.2); Basophils % (auto) 1.2 % (0.0-2.0); Eosinophils # (auto) 0.2 10 ^3/uL (0-0.8); Hemoglobin 13.9 g/dL (13.5-17.5); Lymphocytes # (auto) 1.8 10 ^3/uL (0.4-5.4); Monocytes # (auto) 0.9 10 ^3/uL (0-1.3); Red Cell Distribution Width 19.7 % (11.8-14.3)
[2021-02-22 12:06] LABS: Eosinophils % (auto) 2.5 % (0.0-7.0); Hematocrit 42.5 % (41.0-53.0); Lymphocytes % (auto) 20.6 % (10.0-50.0); Mean Corpuscular Hemoglobin 26.1 pg (28.0-32.0); Mean Corpuscular Hgb Conc. 32.6 g/dL (32.0-36.0); Mean Corpuscular Volume 79.9 fL (80.0-100.0); Neutrophils # (auto) 5.8 10 ^3/uL (1.6-8.6); Neutrophils % (auto) 65.7 % (37.0-80.0); Platelet Count (auto) 206 10^3/uL (140-450); Red Blood Cells 5.31 10^6/uL (4.5-5.90); White Blood Cell 8.8 10^3/uL (4.4-10.8)
[2021-02-22 12:15] LABS: Urine Blood 2+ /uL (Negative); Urine Specific Gravity 1.008 (1.001-1.035)
[2021-02-22 12:18] LABS: Potassium 4.2 mmol/L (3.5-5.1)
[2021-02-22 12:21] LABS: Free T4 (Free Thyroxine) 1.13 ng/dL (0.89-1.76); Prostate Specific Antigen 2.36 ng/mL (0.0-4.0)
[2021-02-22 12:28] LABS: Albumin 3.6 g/dL (3.4-5.0); BUN/Creatinine Ratio 25.7; Bilirubin, Total 0.3 mg/dL (0.2-1.0); Calcium 9.2 mg/dL (8.5-10.1); Total Protein 7.7 g/dL (6.4-8.2)
== END | disposition home or self-care (01) ==
LOC: LAB 07:55
PROVIDERS: ATTEND Internal Medicine Cardiovascular Disease
DX: C61 Malignant neoplasm of prostate (principal); D51.3 Other dietary vitamin B12 deficiency anemia; I10 Essential (primary) hypertension; E11.9 Type 2 diabetes mellitus without complications; E55.9 Vitamin D deficiency, unspecified; D64.9 Anemia, unspecified; R00.2 Palpitations; R53.1 Weakness; R30.0 Dysuria
CPT/HCPCS: 36415; 80053; 80061; 81003; 82306; 82607; 83036; 84153; 84403; 84439; 84443; 85025; 85049; 87086

== ENCOUNTER 2021-05-16 11:52 | Emergency (ER) | payer MEDICARE, OTHER ==
[~2021-05-16] VITALS: Ht 180.3 cm; Wt 113.4 kg
[2021-05-16 13:14] LABS: Basophils # (auto) 0.1 10 ^3/uL (0-0.2); Lymphocytes # (auto) 1.4 10 ^3/uL (0.4-5.4); Mean Corpuscular Hemoglobin 26.3 pg (28.0-32.0); Nucleated Red Blood Cells % 0.1 %; White Blood Cell 6.8 10^3/uL (4.4-10.8)
[2021-05-16 13:15] LABS: Basophils % (auto) 1.1 % (0.0-2.0); Eosinophils # (auto) 0.2 10 ^3/uL (0-0.8); Eosinophils % (auto) 3.2 % (0.0-7.0); Hematocrit 42.8 % (41.0-53.0); Hemoglobin 13.8 g/dL (13.5-17.5); Lymphocytes % (auto) 20.3 % (10.0-50.0); Mean Corpuscular Hgb Conc. 32.1 g/dL (32.0-36.0); Mean Corpuscular Volume 81.8 fL (80.0-100.0); Monocytes # (auto) 0.6 10 ^3/uL (0-1.3); Monocytes % (auto) 8.3 % (0.0-12.0); Neutrophils # (auto) 4.6 10 ^3/uL (1.6-8.6); Neutrophils % (auto) 67.1 % (37.0-80.0); Red Blood Cells 5.24 10^6/uL (4.5-5.90); Red Cell Distribution Width 18.4 % (11.8-14.3)
[2021-05-16 13:36] LABS: INR 0.95 (0.9-1.15); Partial Thromboplastin Time 24.1 sec (23.6-33.0)
[2021-05-16 13:47] LABS: Albumin 3.6 g/dL (3.4-5.0); Calcium 9.4 mg/dL (8.5-10.1); Potassium 4.3 mmol/L (3.5-5.1)
[2021-05-16 13:52] LABS: Bilirubin, Total 0.4 mg/dL (0.2-1.0); Total Protein 7.7 g/dL (6.4-8.2)
[2021-05-16 15:03] VITALS: BP 99/69
== END 2021-05-16 15:04 | disposition home or self-care (01) ==
LOC: ER 11:52
DX: I82.402 Acute embolism and thrombosis of unspecified deep veins of left lower extremity (principal); I10 Essential (primary) hypertension; E78.5 Hyperlipidemia, unspecified; E11.9 Type 2 diabetes mellitus without complications; Z86.73 Personal history of transient ischemic attack (TIA), and cerebral infarction without residual deficits; Z79.82 Long term (current) use of aspirin; Z79.01 Long term (current) use of anticoagulants; Z79.899 Other long term (current) drug therapy
CPT/HCPCS: 36415; 80053; 85025; 85610; 85730; 93971

== ENCOUNTER → 2021-07-02 | Outpatient (CLI) | payer MEDICARE, OTHER ==
[2021-07-02 07:54] LABS: Basophils # (auto) 0.1 10 ^3/uL (0-0.2); Basophils % (auto) 1.1 % (0.0-2.0); Eosinophils # (auto) 0.2 10 ^3/uL (0-0.8); Hemoglobin 13.4 g/dL (13.5-17.5); Nucleated Red Blood Cells % 0.1 %; Red Cell Distribution Width 19.3 % (11.8-14.3)
[2021-07-02 08:00] LABS: Eosinophils % (auto) 2.4 % (0.0-7.0); Hematocrit 40.9 % (41.0-53.0); Lymphocytes # (auto) 1.6 10 ^3/uL (0.4-5.4); Lymphocytes % (auto) 21.8 % (10.0-50.0); Mean Corpuscular Hemoglobin 26.4 pg (28.0-32.0); Mean Corpuscular Hgb Conc. 32.7 g/dL (32.0-36.0); Mean Corpuscular Volume 80.8 fL (80.0-100.0); Monocytes # (auto) 0.6 10 ^3/uL (0-1.3); Monocytes % (auto) 8.3 % (0.0-12.0); Neutrophils % (auto) 66.4 % (37.0-80.0); Red Blood Cells 5.07 10^6/uL (4.5-5.90); White Blood Cell 7.5 10^3/uL (4.4-10.8)
[2021-07-02 08:17] LABS: Albumin 3.6 g/dL (3.4-5.0); Calcium 9.9 mg/dL (8.5-10.1); Potassium 3.9 mmol/L (3.5-5.1)
[2021-07-02 08:23] LABS: BUN/Creatinine Ratio 32.8; Bilirubin, Total 0.3 mg/dL (0.2-1.0); Total Protein 7.9 g/dL (6.4-8.2)
== END | disposition home or self-care (01) ==
LOC: LAB 06:54
PROVIDERS: ATTEND Nurse Practitioner Family
DX: E11.22 Type 2 diabetes mellitus with diabetic chronic kidney disease (principal); I12.9 Hypertensive chronic kidney disease with stage 1 through stage 4 chronic kidney disease, or unspecified chronic kidney disease; N18.30 Chronic kidney disease, stage 3 unspecified; E78.5 Hyperlipidemia, unspecified; I82.622 Acute embolism and thrombosis of deep veins of left upper extremity
CPT/HCPCS: 36415; 80053; 80061; 81241; 82043; 83036; 84153; 85025; 85301; 85303; 85305; 85306; 85613; 85670; 85705; 85732; 86256

== ENCOUNTER → 2021-08-13 | Outpatient (CLI) | payer MEDICARE, OTHER ==
[2021-08-13 12:20] LABS: Basophils # (auto) 0.1 10 ^3/uL (0-0.2); Basophils % (auto) 0.8 % (0.0-2.0); Eosinophils # (auto) 0.1 10 ^3/uL (0-0.8); Hemoglobin 12.4 g/dL (13.5-17.5); Monocytes # (auto) 0.6 10 ^3/uL (0-1.3); Nucleated Red Blood Cells % 0.2 %
[2021-08-13 12:21] LABS: Eosinophils % (auto) 1.8 % (0.0-7.0); Hematocrit 38.7 % (41.0-53.0); Lymphocytes # (auto) 1.5 10 ^3/uL (0.4-5.4); Lymphocytes % (auto) 21.7 % (10.0-50.0); Mean Corpuscular Volume 81.3 fL (80.0-100.0); Monocytes % (auto) 9.3 % (0.0-12.0); Neutrophils # (auto) 4.6 10 ^3/uL (1.6-8.6); Neutrophils % (auto) 66.4 % (37.0-80.0); Red Blood Cells 4.76 10^6/uL (4.5-5.90); White Blood Cell 6.9 10^3/uL (4.4-10.8)
[2021-08-13 12:26] LABS: Urine Bacteria NONE SEEN /hpf (None Seen); Urine Blood Negative /uL (Negative); Urine Specific Gravity 1.012 (1.001-1.035); Urine WBC 23 /hpf (0 - 3)
[2021-08-13 12:36] LABS: Magnesium 2.4 mg/dL (1.6-2.6); Potassium 4.5 mmol/L (3.5-5.1)
[2021-08-13 12:43] LABS: Albumin 3.8 g/dL (3.4-5.0); Bilirubin, Total 0.4 mg/dL (0.2-1.0); Phosphorus 3.9 mg/dL (2.5-4.90); Total Protein 6.8 g/dL (6.4-8.2); Uric Acid 5.3 mg/dL (3.5-7.2)
[2021-08-13 12:51] LABS: Protein, Urine 6.7 mg/dL (0.0-11.9)
[2021-08-13 13:01] LABS: Micro Albumin 6.15 mg/L (0-30.0)
== END | disposition home or self-care (01) ==
LOC: LAB 11:44
PROVIDERS: ATTEND Internal Medicine Nephrology
DX: N18.32 Chronic kidney disease, stage 3b (principal)
CPT/HCPCS: 36415; 80053; 81001; 82043; 82570; 83735; 83970; 84100; 84156; 84550; 85025; 86703; 86803; 87340

== ENCOUNTER → 2021-08-15 | Outpatient (CLI) | payer MEDICARE, OTHER, MEDICAID | END | disposition home or self-care (01) | LOC: Rad HDHVI 10:32 | PROVIDERS: ATTEND Internal Medicine Cardiovascular Disease | DX: I82.412 Acute embolism and thrombosis of left femoral vein (principal); R60.0 Localized edema | CPT/HCPCS: 93971 ==

== ENCOUNTER 2021-09-04 13:59 | Emergency (ER) | payer MEDICARE, OTHER ==
[~2021-09-04] VITALS: Ht 180.3 cm; Wt 108.9 kg
[2021-09-04 20:43] VITALS: BP 110/72
[2021-09-04] MEDS ORDERED: COLCHICINE 0.6 MG CAP PO ONE (20:45)
[2021-09-04] MEDS ORDERED: methylPREDNISolone SOD SUCC 125 MG/2 ML VL IM ONE (20:45)
[2021-09-04] MEDS ORDERED: KETOROLAC TROMETH 60MG/2ML VIAL IM ONE (20:45)
== END 2021-09-04 21:01 | disposition home or self-care (01) ==
LOC: ER 13:59 → EDBD 13:59 → ER 21:01
DX: M10.9 Gout, unspecified (principal); M25.561 Pain in right knee; M25.521 Pain in right elbow; E66.9 Obesity, unspecified; E11.9 Type 2 diabetes mellitus without complications; I10 Essential (primary) hypertension; E78.5 Hyperlipidemia, unspecified; Z86.73 Personal history of transient ischemic attack (TIA), and cerebral infarction without residual deficits; Z98.61 Coronary angioplasty status
CPT/HCPCS: 36415; 84550; 96372; 99284; J1885; J2930

== ENCOUNTER 2021-09-13 09:58 | Inpatient (IN) | payer MEDICARE, OTHER ==
[~2021-09-13] VITALS: Ht 182.9 cm; Wt 97.7 kg
[2021-09-13] MEDS ORDERED: SODIUM CHLORIDE 0.9% 1,000 ML IV ONE ×2 (10:15)
[2021-09-13] MEDS ORDERED: INDOMETHACIN 25 MG CAP PO ONE (10:15)
[2021-09-13 11:03] LABS: Basophils # (auto) 0 10 ^3/uL (0-0.2); Eosinophils # (auto) 0 10 ^3/uL (0-0.8); Lymphocytes # (auto) 0.5 10 ^3/uL (0.4-5.4); Monocytes # (auto) 0.7 10 ^3/uL (0-1.3)
[2021-09-13 11:05] LABS: Basophils % (auto) 0.3 % (0.0-2.0); Eosinophils % (auto) 0.1 % (0.0-7.0); Hematocrit 34.2 % (41.0-53.0); Hemoglobin 10.9 g/dL (13.5-17.5); Mean Corpuscular Hemoglobin 25.8 pg (28.0-32.0); Mean Corpuscular Volume 80.8 fL (80.0-100.0); Monocytes % (auto) 5.5 % (0.0-12.0); Neutrophils % (auto) 90.1 % (37.0-80.0); Red Blood Cells 4.24 10^6/uL (4.5-5.90); Red Cell Distribution Width 19.3 % (11.8-14.3); White Blood Cell 12.2 10^3/uL (4.4-10.8)
[2021-09-13 11:32] LABS: Urine Bacteria FEW /hpf (None Seen); Urine Blood Negative /uL (Negative); Urine Hyaline Cast FEW /lpf (0 - 2); Urine Specific Gravity 1.015 (1.001-1.035); Urine WBC 32 /hpf (0 - 3)
[2021-09-13 11:36] LABS: Albumin 2.8 g/dL (3.4-5.0); Calcium 9.3 mg/dL (8.5-10.1); Potassium 5.4 mmol/L (3.5-5.1)
[2021-09-13 11:45] LABS: BUN/Creatinine Ratio 49.6; Bilirubin, Total 0.5 mg/dL (0.2-1.0); Total Protein 7.5 g/dL (6.4-8.2)
[2021-09-13] MEDS ORDERED: CALCIUM CHL 100MG/ML 1,000 MG in D5W 5% 100 ML IV ONE (12:30)
[2021-09-13] MEDS ORDERED: SODIUM BICARBONATE 8.4% INJ 50ML SYRINGE IV ONE (12:30)
[2021-09-13] MEDS ORDERED: ALBUTEROL SULF 2.5 MG/0.5ML(0.5%) NEB SOLN NEB ONE (12:30)
[2021-09-13] MEDS ORDERED: FUROSEMIDE 40 MG/4 ML VIAL IV ONE (12:30)
[2021-09-13] MEDS ORDERED: SODIUM ZIRCONIUM CYCL 10 GM PAK PO ONE (12:30)
[2021-09-13] MEDS ORDERED: MORPHINE SULFATE INJECTION 2 MG/ML SYRG IV PRN (12:30)
[2021-09-13] MEDS ORDERED: InsuLIN REG 1unit/0.01ml Soln (100units/ml) IV ONE (12:30)
[2021-09-13] MEDS ORDERED: DEXTROSE (50%) 50ML SYRG IV ONE (12:30)
[2021-09-13] MEDS ORDERED: NITROGLYCERIN 0.4 MG SL TAB SL PRN (12:30)
[2021-09-13] MEDS ORDERED: ENOXAPARIN SOD 40 MG/0.4 ML SYRINGE SC ONE (16:45)
[2021-09-13] MEDS ORDERED: dilTIAZem 25 MG/5 ML VIAL IV ONE (19:45)
[2021-09-13] MEDS ORDERED: HEPARIN DRIP/D5W 100UNITS/ML 250 ML IV SCH (19:45)
[2021-09-13] MEDS ORDERED: dilTIAZem 125mg/125ml BAG KIT 125 ML IV SCH (19:45)
[2021-09-13] MEDS ORDERED: DEXTROSE (50%) 50ML SYRG IV PRN (19:45)
[2021-09-13] MEDS ORDERED: HEPARIN SODIUM (PORCINE) 5000 UNITS/ML 1ML VIAL IV ONE (19:45)
[2021-09-13] MEDS ORDERED: SODIUM CHLORIDE 0.9% 250 ML IV ONE (20:15)
[2021-09-13 21:27] LABS: Basophils # (auto) 0 10 ^3/uL (0-0.2); Basophils % (auto) 0.2 % (0.0-2.0); Eosinophils # (auto) 0 10 ^3/uL (0-0.8); Lymphocytes # (auto) 0.5 10 ^3/uL (0.4-5.4); Monocytes # (auto) 0.6 10 ^3/uL (0-1.3)
[2021-09-13 21:30] LABS: Eosinophils % (auto) 0.1 % (0.0-7.0); Hematocrit 32.3 % (41.0-53.0); Hemoglobin 10.4 g/dL (13.5-17.5); Lymphocytes % (auto) 4.9 % (10.0-50.0); Mean Corpuscular Hgb Conc. 32.3 g/dL (32.0-36.0); Mean Corpuscular Volume 80.3 fL (80.0-100.0); Monocytes % (auto) 5.8 % (0.0-12.0); Neutrophils # (auto) 9.1 10 ^3/uL (1.6-8.6); Red Blood Cells 4.02 10^6/uL (4.5-5.90); Red Cell Distribution Width 19.6 % (11.8-14.3); White Blood Cell 10.2 10^3/uL (4.4-10.8)
[2021-09-13] MEDS ORDERED: DexAMETHasone SOD PHOS 10MG/1ML VIAL INJ IV ONE (22:00)
[2021-09-13] MEDS: ACCU-CHEK COMFORT CURVE STRIP VI SCH (22:00)
[2021-09-13] MEDS: ALBUMIN 25% 100 ML IV SCH (22:00)
[2021-09-13] MEDS: SODIUM ZIRCONIUM CYCL 10 GM PAK PO SCH (22:00)
[2021-09-13] MEDS ORDERED: ALBUMIN 25% 100 ML IV ONE (22:00)
[2021-09-13] MEDS ORDERED: AMIODARONE HCL 200 MG TAB PO ONE (22:00)
[2021-09-13 23:18] LABS: INR 1.16 (0.9-1.15); Partial Thromboplastin Time 62.6 sec (23.6-33.0)
[2021-09-13] MEDS: InsuLIN REG 1unit/0.01ml Soln (100units/ml) SC SCH (23:33)
[2021-09-14] MEDS ORDERED: PANTOPRAZOLE 40 MG/10 ML VIAL INJ IV ONE (00:45)
[2021-09-14] MEDS ORDERED: METOCLOPRAMIDE HCL 5MG/ml INJ 2ml VIAL IV PRN (00:45)
[2021-09-14] MEDS ORDERED: HYDROcodone-ACET 5/325MG TAB PO PRN (00:45)
[2021-09-14] MEDS ORDERED: TEMAZEPAM 15 MG CAP PO PRN (00:45)
[2021-09-14] MEDS ORDERED: DOCUSATE SOD 100 MG CAP PO PRN (00:45)
[2021-09-14] MEDS ORDERED: ALUM & MAG HYDROX-SIMETH LIQ(MAALOX) 30 ML PO PRN (00:45)
[2021-09-14] MEDS ORDERED: NITROGLYCERIN 0.4 MG SL TAB SL PRN (00:45)
[2021-09-14] MEDS ORDERED: MORPHINE SULFATE INJECTION 2 MG/ML SYRG IV PRN ×2 (00:45)
[2021-09-14] MEDS ORDERED: hydrALAZINE HCL 20 MG/ML VL IV PRN (00:45)
[2021-09-14] MEDS ORDERED: ACETAMINOPHEN 325 MG TAB PO PRN (00:45)
[2021-09-14 03:32] LABS: INR 1.16 (0.9-1.15); Partial Thromboplastin Time 68.9 sec (23.6-33.0)
[2021-09-14 03:39] LABS: Cholesterol 110 mg/dL (< 200); Triglycerides 75 mg/dL (< 150)
[2021-09-14 03:42] LABS: HDL Cholesterol 34 mg/dL (40-59); LDL Cholesterol 65 mg/dL (< 100)
[2021-09-14] MEDS: SODIUM ZIRCONIUM CYCL 10 GM PAK PO SCH ×3 (06:00→22:09)
[2021-09-14] MEDS: ALBUMIN 25% 100 ML IV SCH ×2 (06:00→14:00)
[2021-09-14] MEDS: InsuLIN REG 1unit/0.01ml Soln (100units/ml) SC SCH ×4 (06:59→22:05)
[2021-09-14] MEDS: ACCU-CHEK COMFORT CURVE STRIP VI SCH ×4 (06:59→22:05)
[2021-09-14] MEDS: PANTOPRAZOLE 40 MG/10 ML VIAL INJ IV SCH (10:48)
[2021-09-14] MEDS: predniSONE 20 MG TAB PO SCH ×2 (10:48→22:11)
[2021-09-14] MEDS: AMIODARONE HCL 200 MG TAB PO SCH (10:48)
[2021-09-14] MEDS: ASPirin 81 mg TAB PO SCH (10:48)
[2021-09-14] MEDS: ISOSORBIDE MONONITRATE 20 MG TAB PO SCH ×2 (10:53→22:10)
[2021-09-14 13:01] LABS: INR 1.1 (0.9-1.15)
[2021-09-14 13:21] LABS: Partial Thromboplastin Time 87.7 sec (23.6-33.0)
[2021-09-14] MEDS: SODIUM CHLORIDE 0.9% 1,000 ML IV SCH (15:30)
[2021-09-14] MEDS ORDERED: METOPROLOL SUCCINATE XL 50 MG TAB PO ONE (15:30)
[2021-09-14 20:25] VITALS: BP 150/86
[2021-09-14 22:00] VITALS: BP 134/71
[2021-09-14] MEDS: ASCORBIC ACID 500 MG TAB PO SCH (22:10)
[2021-09-14] MEDS: ATORVASTATIN 20 MG TAB PO SCH (22:10)
[2021-09-14 22:55] LABS: BUN/Creatinine Ratio 57.6; Calcium 9.3 mg/dL (8.5-10.1); Potassium 4.3 mmol/L (3.5-5.1)
[2021-09-14 22:57] LABS: INR 1.07 (0.9-1.15); Partial Thromboplastin Time 27.6 sec (23.6-33.0)
[2021-09-15] MEDS: SODIUM CHLORIDE 0.9% 1,000 ML IV SCH ×3 (01:30→23:39)
[2021-09-15 05:00] VITALS: BP 128/72
[2021-09-15] MEDS: SODIUM ZIRCONIUM CYCL 10 GM PAK PO SCH (05:42)
[2021-09-15] MEDS: ACCU-CHEK COMFORT CURVE STRIP VI SCH ×4 (05:48→21:53)
[2021-09-15] MEDS: InsuLIN REG 1unit/0.01ml Soln (100units/ml) SC SCH ×4 (05:54→21:56)
[2021-09-15 07:07] LABS: Basophils # (auto) 0 10 ^3/uL (0-0.2); Basophils % (auto) 0.3 % (0.0-2.0); Eosinophils # (auto) 0 10 ^3/uL (0-0.8); Hematocrit 28.7 % (41.0-53.0); Hemoglobin 9.3 g/dL (13.5-17.5); Lymphocytes # (auto) 0.3 10 ^3/uL (0.4-5.4); Lymphocytes % (auto) 2.1 % (10.0-50.0); Mean Corpuscular Hemoglobin 25.7 pg (28.0-32.0); Mean Corpuscular Hgb Conc. 32.6 g/dL (32.0-36.0); Monocytes # (auto) 0.5 10 ^3/uL (0-1.3); Monocytes % (auto) 3.6 % (0.0-12.0); Neutrophils # (auto) 12.8 10 ^3/uL (1.6-8.6); Nucleated Red Blood Cells % 0.1 %; Red Blood Cells 3.63 10^6/uL (4.5-5.90); Red Cell Distribution Width 19.3 % (11.8-14.3); White Blood Cell 13.6 10^3/uL (4.4-10.8)
[2021-09-15 07:21] LABS: Albumin 3.1 g/dL (3.4-5.0); Calcium 9.4 mg/dL (8.5-10.1); Magnesium 3.5 mg/dL (1.6-2.6); Potassium 4.4 mmol/L (3.5-5.1)
[2021-09-15 07:27] LABS: Bilirubin, Total 0.4 mg/dL (0.2-1.0); Total Protein 5.9 g/dL (6.4-8.2)
[2021-09-15 09:00] VITALS: BP 134/67
[2021-09-15] MEDS ORDERED: ALLOPURINOL 300 MG TAB PO SCH (10:00)
[2021-09-15] MEDS: PANTOPRAZOLE 40 MG/10 ML VIAL INJ IV SCH (10:21)
[2021-09-15] MEDS: ISOSORBIDE MONONITRATE 20 MG TAB PO SCH ×2 (10:22→21:52)
[2021-09-15] MEDS: AMIODARONE HCL 200 MG TAB PO SCH (10:22)
[2021-09-15] MEDS: IVERMECTIN 3 MG TAB PO SCH (10:23)
[2021-09-15] MEDS: ASCORBIC ACID 500 MG TAB PO SCH ×2 (10:23→21:53)
[2021-09-15] MEDS: ASPirin 81 mg TAB PO SCH (10:23)
[2021-09-15] MEDS: CHOLECALCIFEROL (VITD3) 2,000 UNIT CAP/TAB PO SCH (10:23)
[2021-09-15] MEDS: predniSONE 20 MG TAB PO SCH ×2 (10:24→21:52)
[2021-09-15] MEDS: ALLOPURINOL 100 MG TAB PO SCH (10:24)
[2021-09-15] MEDS: ENOXAPARIN SOD 100 MG/1 ML SYRINGE SC SCH (10:25)
[2021-09-15] MEDS: METOPROLOL SUCCINATE XL 50 MG TAB PO SCH (10:25)
[2021-09-15] MEDS: ZINC SULFATE 220mg CAP or TAB PO SCH (10:36)
[2021-09-15 13:04] VITALS: BP 126/73
[2021-09-15 17:00] VITALS: BP 111/59
[2021-09-15] MEDS: ATORVASTATIN 20 MG TAB PO SCH (21:53)
[2021-09-15 22:00] VITALS: BP 117/67
[2021-09-16 05:00] VITALS: BP 123/63
[2021-09-16] MEDS: ACCU-CHEK COMFORT CURVE STRIP VI SCH ×4 (06:25→21:47)
[2021-09-16] MEDS: InsuLIN REG 1unit/0.01ml Soln (100units/ml) SC SCH ×4 (06:26→21:54)
[2021-09-16 07:49] LABS: Calcium 9.2 mg/dL (8.5-10.1); Magnesium 2.4 mg/dL (1.6-2.6); Potassium 4.5 mmol/L (3.5-5.1)
[2021-09-16 08:07] LABS: Basophils # (auto) 0.1 10 ^3/uL (0-0.2); Basophils % (auto) 0.5 % (0.0-2.0); Eosinophils # (auto) 0 10 ^3/uL (0-0.8); Hematocrit 29.1 % (41.0-53.0); Hemoglobin 9.5 g/dL (13.5-17.5); Lymphocytes # (auto) 0.3 10 ^3/uL (0.4-5.4); Lymphocytes % (auto) 2.1 % (10.0-50.0); Mean Corpuscular Hemoglobin 25.9 pg (28.0-32.0); Mean Corpuscular Hgb Conc. 32.5 g/dL (32.0-36.0); Mean Corpuscular Volume 79.5 fL (80.0-100.0); Monocytes # (auto) 0.7 10 ^3/uL (0-1.3); Monocytes % (auto) 4.3 % (0.0-12.0); Neutrophils # (auto) 14.4 10 ^3/uL (1.6-8.6); Neutrophils % (auto) 93.1 % (37.0-80.0); Red Blood Cells 3.65 10^6/uL (4.5-5.90); White Blood Cell 15.4 10^3/uL (4.4-10.8)
[2021-09-16 09:00] VITALS: BP 127/70
[2021-09-16] MEDS: IVERMECTIN 3 MG TAB PO SCH (10:26)
[2021-09-16] MEDS: ASPirin 81 mg TAB PO SCH (10:26)
[2021-09-16] MEDS: PANTOPRAZOLE 40 MG/10 ML VIAL INJ IV SCH (10:26)
[2021-09-16] MEDS: ENOXAPARIN SOD 100 MG/1 ML SYRINGE SC SCH (10:26)
[2021-09-16] MEDS: ZINC SULFATE 220mg CAP or TAB PO SCH (10:30)
[2021-09-16] MEDS: ISOSORBIDE MONONITRATE 20 MG TAB PO SCH ×2 (10:30→21:47)
[2021-09-16] MEDS: CHOLECALCIFEROL (VITD3) 2,000 UNIT CAP/TAB PO SCH (10:30)
[2021-09-16] MEDS: AMIODARONE HCL 200 MG TAB PO SCH (10:30)
[2021-09-16] MEDS: predniSONE 20 MG TAB PO SCH ×2 (10:31→21:47)
[2021-09-16] MEDS: METOPROLOL SUCCINATE XL 50 MG TAB PO SCH (10:31)
[2021-09-16] MEDS: ALLOPURINOL 100 MG TAB PO SCH (10:31)
[2021-09-16] MEDS: ASCORBIC ACID 500 MG TAB PO SCH ×2 (10:31→21:47)
[2021-09-16 13:00] VITALS: BP 118/69
[2021-09-16] MEDS: ATORVASTATIN 20 MG TAB PO SCH (21:47)
[2021-09-16 22:00] VITALS: BP 102/62
[2021-09-17 05:00] VITALS: BP 132/63
[2021-09-17] MEDS: ACCU-CHEK COMFORT CURVE STRIP VI SCH ×4 (06:42→22:31)
[2021-09-17] MEDS: InsuLIN REG 1unit/0.01ml Soln (100units/ml) SC SCH ×4 (06:42→22:38)
[2021-09-17 07:59] LABS: BUN/Creatinine Ratio 35.1; Calcium 8.7 mg/dL (8.5-10.1); Potassium 4.9 mmol/L (3.5-5.1)
[2021-09-17 09:00] VITALS: BP 122/60
[2021-09-17] MEDS: PANTOPRAZOLE 40 MG/10 ML VIAL INJ IV SCH (10:36)
[2021-09-17] MEDS: ASPirin 81 mg TAB PO SCH (10:36)
[2021-09-17] MEDS: predniSONE 20 MG TAB PO SCH ×2 (10:37→22:29)
[2021-09-17] MEDS: AMIODARONE HCL 200 MG TAB PO SCH (10:37)
[2021-09-17] MEDS: ZINC SULFATE 220mg CAP or TAB PO SCH (10:37)
[2021-09-17] MEDS: ISOSORBIDE MONONITRATE 20 MG TAB PO SCH ×2 (10:38→22:30)
[2021-09-17] MEDS: ASCORBIC ACID 500 MG TAB PO SCH ×2 (10:39→22:31)
[2021-09-17] MEDS: METOPROLOL SUCCINATE XL 50 MG TAB PO SCH (10:39)
[2021-09-17] MEDS: CHOLECALCIFEROL (VITD3) 2,000 UNIT CAP/TAB PO SCH (10:39)
[2021-09-17] MEDS: ALLOPURINOL 100 MG TAB PO SCH (10:40)
[2021-09-17] MEDS: ENOXAPARIN SOD 100 MG/1 ML SYRINGE SC SCH ×2 (10:40→22:31)
[2021-09-17] MEDS: IVERMECTIN 3 MG TAB PO SCH (11:15)
[2021-09-17 13:00] VITALS: BP 119/81
[2021-09-17 17:00] VITALS: BP 103/61
[2021-09-17 21:22] VITALS: BP 129/71
[2021-09-17] MEDS: ATORVASTATIN 20 MG TAB PO SCH (22:30)
[2021-09-18 05:00] VITALS: BP 104/68
[2021-09-18] MEDS: ACCU-CHEK COMFORT CURVE STRIP VI SCH ×4 (06:41→22:30)
[2021-09-18] MEDS: InsuLIN REG 1unit/0.01ml Soln (100units/ml) SC SCH ×4 (06:45→22:31)
[2021-09-18 09:00] VITALS: BP 118/70
[2021-09-18] MEDS: ENOXAPARIN SOD 100 MG/1 ML SYRINGE SC SCH ×2 (10:17→22:30)
[2021-09-18] MEDS: PANTOPRAZOLE 40 MG/10 ML VIAL INJ IV SCH (10:17)
[2021-09-18] MEDS: ASPirin 81 mg TAB PO SCH (10:18)
[2021-09-18] MEDS: ISOSORBIDE MONONITRATE 20 MG TAB PO SCH ×2 (10:18→22:29)
[2021-09-18] MEDS: ZINC SULFATE 220mg CAP or TAB PO SCH (10:18)
[2021-09-18] MEDS: IVERMECTIN 3 MG TAB PO SCH (10:18)
[2021-09-18] MEDS: ASCORBIC ACID 500 MG TAB PO SCH ×2 (10:18→22:29)
[2021-09-18] MEDS: AMIODARONE HCL 200 MG TAB PO SCH (10:19)
[2021-09-18] MEDS: ALLOPURINOL 100 MG TAB PO SCH (10:19)
[2021-09-18] MEDS: METOPROLOL SUCCINATE XL 50 MG TAB PO SCH (10:19)
[2021-09-18] MEDS: predniSONE 20 MG TAB PO SCH (10:19)
[2021-09-18] MEDS: CHOLECALCIFEROL (VITD3) 2,000 UNIT CAP/TAB PO SCH (10:20)
[2021-09-18 13:00] VITALS: BP 106/65
[2021-09-18 16:44] VITALS: BP 123/64
[2021-09-18 18:22] LABS: BUN/Creatinine Ratio 28.6; Calcium 9.1 mg/dL (8.5-10.1); Magnesium 2.1 mg/dL (1.6-2.6); Potassium 4.8 mmol/L (3.5-5.1)
[2021-09-18 22:00] VITALS: BP 98/56
[2021-09-18] MEDS: ATORVASTATIN 20 MG TAB PO SCH (22:29)
[2021-09-19 05:00] VITALS: BP 131/60
[2021-09-19] MEDS: ACCU-CHEK COMFORT CURVE STRIP VI SCH ×4 (06:35→22:11)
[2021-09-19] MEDS: InsuLIN REG 1unit/0.01ml Soln (100units/ml) SC SCH ×4 (06:39→22:27)
[2021-09-19 09:00] VITALS: BP 119/64
[2021-09-19] MEDS: PANTOPRAZOLE 40 MG/10 ML VIAL INJ IV SCH (10:49)
[2021-09-19] MEDS: ENOXAPARIN SOD 100 MG/1 ML SYRINGE SC SCH ×2 (10:49→22:11)
[2021-09-19] MEDS: AMIODARONE HCL 200 MG TAB PO SCH (10:50)
[2021-09-19] MEDS: METOPROLOL SUCCINATE XL 50 MG TAB PO SCH (10:50)
[2021-09-19] MEDS: IVERMECTIN 3 MG TAB PO SCH (10:50)
[2021-09-19] MEDS: ZINC SULFATE 220mg CAP or TAB PO SCH (10:51)
[2021-09-19] MEDS: ASPirin 81 mg TAB PO SCH (10:51)
[2021-09-19] MEDS: ISOSORBIDE MONONITRATE 20 MG TAB PO SCH ×2 (10:51→22:11)
[2021-09-19] MEDS: ASCORBIC ACID 500 MG TAB PO SCH ×2 (10:51→22:11)
[2021-09-19] MEDS: ALLOPURINOL 100 MG TAB PO SCH (10:52)
[2021-09-19] MEDS: CHOLECALCIFEROL (VITD3) 2,000 UNIT CAP/TAB PO SCH (10:52)
[2021-09-19] MEDS: predniSONE 20 MG TAB PO SCH (10:52)
[2021-09-19 13:00] VITALS: BP 127/60
[2021-09-19 16:57] VITALS: BP 102/58
[2021-09-19 22:00] VITALS: BP 122/68
[2021-09-19] MEDS: ATORVASTATIN 20 MG TAB PO SCH (22:11)
[2021-09-20 05:00] VITALS: BP 120/68
[2021-09-20] MEDS: ACCU-CHEK COMFORT CURVE STRIP VI SCH ×4 (06:30→22:29)
[2021-09-20] MEDS: InsuLIN REG 1unit/0.01ml Soln (100units/ml) SC SCH ×4 (06:35→22:49)
[2021-09-20 09:00] VITALS: BP 114/65
[2021-09-20] MEDS: predniSONE 20 MG TAB PO SCH (10:01)
[2021-09-20] MEDS: ASPirin 81 mg TAB PO SCH (10:01)
[2021-09-20] MEDS: PANTOPRAZOLE 40 MG/10 ML VIAL INJ IV SCH (10:01)
[2021-09-20] MEDS: ZINC SULFATE 220mg CAP or TAB PO SCH (10:01)
[2021-09-20] MEDS: ASCORBIC ACID 500 MG TAB PO SCH ×2 (10:02→22:29)
[2021-09-20] MEDS: ISOSORBIDE MONONITRATE 20 MG TAB PO SCH ×2 (10:02→22:31)
[2021-09-20] MEDS: AMIODARONE HCL 200 MG TAB PO SCH (10:02)
[2021-09-20] MEDS: CHOLECALCIFEROL (VITD3) 2,000 UNIT CAP/TAB PO SCH (10:03)
[2021-09-20] MEDS: ENOXAPARIN SOD 100 MG/1 ML SYRINGE SC SCH ×2 (10:03→22:29)
[2021-09-20] MEDS: ALLOPURINOL 100 MG TAB PO SCH (10:03)
[2021-09-20 13:00] VITALS: BP 104/51
[2021-09-20] MEDS: METOPROLOL SUCCINATE XL 50 MG TAB PO SCH (14:13)
[2021-09-20 17:00] VITALS: BP 113/55
[2021-09-20 22:00] VITALS: BP 124/62
[2021-09-20] MEDS: ATORVASTATIN 20 MG TAB PO SCH (22:30)
[2021-09-21 05:00] VITALS: BP 109/58
[2021-09-21 06:42] LABS: Potassium 4.2 mmol/L (3.5-5.1)
[2021-09-21 06:55] LABS: BUN/Creatinine Ratio 34.1; Calcium 8.6 mg/dL (8.5-10.1); Magnesium 2.5 mg/dL (1.6-2.6)
[2021-09-21] MEDS: ACCU-CHEK COMFORT CURVE STRIP VI SCH ×4 (06:57→22:00)
[2021-09-21] MEDS: InsuLIN REG 1unit/0.01ml Soln (100units/ml) SC SCH ×4 (06:58→22:52)
[2021-09-21 08:40] VITALS: BP 109/63
[2021-09-21] MEDS: ASPirin 81 mg TAB PO SCH (10:40)
[2021-09-21] MEDS: PANTOPRAZOLE 40 MG/10 ML VIAL INJ IV SCH (10:40)
[2021-09-21] MEDS: AMIODARONE HCL 200 MG TAB PO SCH (10:41)
[2021-09-21] MEDS: ISOSORBIDE MONONITRATE 20 MG TAB PO SCH ×2 (10:41→22:44)
[2021-09-21] MEDS: predniSONE 20 MG TAB PO SCH (10:41)
[2021-09-21] MEDS: ASCORBIC ACID 500 MG TAB PO SCH ×2 (10:42→22:50)
[2021-09-21] MEDS: CHOLECALCIFEROL (VITD3) 2,000 UNIT CAP/TAB PO SCH (10:42)
[2021-09-21] MEDS: ALLOPURINOL 100 MG TAB PO SCH (10:42)
[2021-09-21] MEDS: METOPROLOL SUCCINATE XL 50 MG TAB PO SCH (10:42)
[2021-09-21] MEDS: ENOXAPARIN SOD 100 MG/1 ML SYRINGE SC SCH ×2 (10:42→22:56)
[2021-09-21 10:59] LABS: Basophils # (auto) 0 10 ^3/uL (0-0.2); Eosinophils # (auto) 0.1 10 ^3/uL (0-0.8); Monocytes # (auto) 0.2 10 ^3/uL (0-1.3); White Blood Cell 8.7 10^3/uL (4.4-10.8)
[2021-09-21 11:01] LABS: Basophils % (auto) 0.1 % (0.0-2.0); Eosinophils % (auto) 1.2 % (0.0-7.0); Hematocrit 29.3 % (41.0-53.0); Hemoglobin 9.4 g/dL (13.5-17.5); Lymphocytes # (auto) 0.5 10 ^3/uL (0.4-5.4); Lymphocytes % (auto) 5.3 % (10.0-50.0); Mean Corpuscular Hemoglobin 25.8 pg (28.0-32.0); Mean Corpuscular Hgb Conc. 32.2 g/dL (32.0-36.0); Mean Corpuscular Volume 80.1 fL (80.0-100.0); Monocytes % (auto) 2.6 % (0.0-12.0); Neutrophils # (auto) 7.9 10 ^3/uL (1.6-8.6); Neutrophils % (auto) 90.8 % (37.0-80.0); Nucleated Red Blood Cells % 0.1 %; Red Blood Cells 3.66 10^6/uL (4.5-5.90); Red Cell Distribution Width 19.5 % (11.8-14.3)
[2021-09-21] MEDS: ZINC SULFATE 220mg CAP or TAB PO SCH (12:13)
[2021-09-21 12:47] VITALS: BP 104/53
[2021-09-21] MEDS ORDERED: REMDESIVIR PER PHARMACY 0 ML IV SCH (15:30)
[2021-09-21 16:43] VITALS: BP 93/53
[2021-09-21] MEDS ORDERED: REMDESIVIR 200 MG in NS 210ml LOADING DOSE ADULT IV ONE (17:00)
[2021-09-21] MEDS ORDERED: FUROSEMIDE 40 MG/4 ML VIAL IV ONE (18:45)
[2021-09-21] MEDS ORDERED: POTASSIUM CHL 20 Meq TABLET PO ONE (18:45)
[2021-09-21 22:00] VITALS: BP 101/52
[2021-09-21] MEDS: ATORVASTATIN 20 MG TAB PO SCH (22:50)
[2021-09-22 05:00] VITALS: BP 102/58
[2021-09-22] MEDS: ACCU-CHEK COMFORT CURVE STRIP VI SCH ×4 (06:31→21:59)
[2021-09-22] MEDS: InsuLIN REG 1unit/0.01ml Soln (100units/ml) SC SCH ×4 (06:32→21:59)
[2021-09-22 08:39] VITALS: BP 107/47
[2021-09-22 08:56] LABS: Potassium 4.3 mmol/L (3.5-5.1)
[2021-09-22 09:32] LABS: Albumin 1.9 g/dL (3.4-5.0); Bilirubin, Total 0.5 mg/dL (0.2-1.0); Calcium 8.9 mg/dL (8.5-10.1); Total Protein 6.5 g/dL (6.4-8.2)
[2021-09-22] MEDS: METOPROLOL SUCCINATE XL 50 MG TAB PO SCH (10:00)
[2021-09-22] MEDS ORDERED: DexAMETHasone SOD PHOS 10MG/1ML VIAL INJ IV SCH (10:00)
[2021-09-22] MEDS: ISOSORBIDE MONONITRATE 20 MG TAB PO SCH ×2 (10:00→22:01)
[2021-09-22] MEDS: ASPirin 81 mg TAB PO SCH (10:01)
[2021-09-22] MEDS: PANTOPRAZOLE 40 MG/10 ML VIAL INJ IV SCH (10:01)
[2021-09-22] MEDS: AMIODARONE HCL 200 MG TAB PO SCH (10:02)
[2021-09-22] MEDS: ZINC SULFATE 220mg CAP or TAB PO SCH (10:02)
[2021-09-22] MEDS: CHOLECALCIFEROL (VITD3) 2,000 UNIT CAP/TAB PO SCH (10:03)
[2021-09-22] MEDS: ASCORBIC ACID 500 MG TAB PO SCH ×2 (10:03→22:01)
[2021-09-22] MEDS: ALLOPURINOL 100 MG TAB PO SCH (10:03)
[2021-09-22] MEDS: ENOXAPARIN SOD 100 MG/1 ML SYRINGE SC SCH ×2 (10:03→22:01)
[2021-09-22 12:46] VITALS: BP 110/51
[2021-09-22] MEDS ORDERED: REMDESIVIR PER PHARMACY 0 ML IV SCH (13:15)
[2021-09-22] MEDS: DexAMETHasone SOD PHOS 10MG/1ML VIAL INJ IV SCH ×2 (15:00→22:01)
[2021-09-22] MEDS ORDERED: REMDESIVIR 200 MG in NS 210ml LOADING DOSE ADULT IV ONE (15:00)
[2021-09-22] MEDS ORDERED: REMDESIVIR 100mg 100 MG in SODIUM CHL 0.9% 230 ML IV SCH (15:00)
[2021-09-22 17:00] VITALS: BP 116/55
[2021-09-22] MEDS: IPRATROPIUM BROMIDE HFA AER IN SCH (19:08)
[2021-09-22] MEDS: BUDESONIDE (INHALATION) 180 MCG IH IN SCH (19:08)
[2021-09-22 22:00] VITALS: BP 130/58
[2021-09-22] MEDS ORDERED: BUDESONIDE (INHALATION) 0.5 MG/2 ML NEB NEB SCH (22:00)
[2021-09-22] MEDS ORDERED: IPRATROPIUM BROM 0.5 MG/2.5ML INH SOL NEB SCH (22:00)
[2021-09-22] MEDS: ATORVASTATIN 20 MG TAB PO SCH (22:01)
[2021-09-23 05:00] VITALS: BP 111/38
[2021-09-23] MEDS: ACCU-CHEK COMFORT CURVE STRIP VI SCH ×4 (05:50→21:20)
[2021-09-23] MEDS: InsuLIN REG 1unit/0.01ml Soln (100units/ml) SC SCH ×4 (05:52→21:09)
[2021-09-23] MEDS: DexAMETHasone SOD PHOS 10MG/1ML VIAL INJ IV SCH ×3 (05:55→21:10)
[2021-09-23 06:06] LABS: Albumin 1.8 g/dL (3.4-5.0); Calcium 8.5 mg/dL (8.5-10.1); Potassium 4.6 mmol/L (3.5-5.1)
[2021-09-23 06:08] LABS: BUN/Creatinine Ratio 42.4
[2021-09-23 06:11] LABS: Bilirubin, Total 0.5 mg/dL (0.2-1.0); Total Protein 5.5 g/dL (6.4-8.2)
[2021-09-23 06:22] VITALS: BP 120/55
[2021-09-23] MEDS: IPRATROPIUM BROMIDE HFA AER IN SCH ×3 (07:17→20:19)
[2021-09-23] MEDS: BUDESONIDE (INHALATION) 180 MCG IH IN SCH ×2 (07:17→20:18)
[2021-09-23 09:00] VITALS: BP 108/60
[2021-09-23] MEDS: PANTOPRAZOLE 40 MG/10 ML VIAL INJ IV SCH (09:25)
[2021-09-23] MEDS: ASPirin 81 mg TAB PO SCH (09:25)
[2021-09-23] MEDS: ISOSORBIDE MONONITRATE 20 MG TAB PO SCH ×2 (09:26→21:10)
[2021-09-23] MEDS: ZINC SULFATE 220mg CAP or TAB PO SCH (09:26)
[2021-09-23] MEDS: AMIODARONE HCL 200 MG TAB PO SCH (09:26)
[2021-09-23] MEDS: METOPROLOL SUCCINATE XL 50 MG TAB PO SCH (09:27)
[2021-09-23] MEDS: ASCORBIC ACID 500 MG TAB PO SCH ×2 (09:27→21:10)
[2021-09-23] MEDS: IVERMECTIN 3 MG TAB PO SCH (09:27)
[2021-09-23] MEDS: ALLOPURINOL 100 MG TAB PO SCH (09:28)
[2021-09-23] MEDS: CHOLECALCIFEROL (VITD3) 2,000 UNIT CAP/TAB PO SCH (09:28)
[2021-09-23] MEDS: ENOXAPARIN SOD 100 MG/1 ML SYRINGE SC SCH ×2 (09:29→21:11)
[2021-09-23 13:00] VITALS: BP 105/53
[2021-09-23] MEDS: REMDESIVIR 100mg 100 MG in SODIUM CHL 0.9% 230 ML IV SCH (15:26)
[2021-09-23 17:00] VITALS: BP 124/69
[2021-09-23] MEDS: ATORVASTATIN 20 MG TAB PO SCH (21:09)
[2021-09-23 22:00] VITALS: BP 113/61
[2021-09-24 05:00] VITALS: BP 139/62
[2021-09-24] MEDS: IPRATROPIUM BROMIDE HFA AER IN SCH ×3 (06:00→17:46)
[2021-09-24] MEDS: ACCU-CHEK COMFORT CURVE STRIP VI SCH ×4 (06:09→22:32)
[2021-09-24] MEDS: InsuLIN REG 1unit/0.01ml Soln (100units/ml) SC SCH ×4 (06:11→23:01)
[2021-09-24] MEDS: DexAMETHasone SOD PHOS 10MG/1ML VIAL INJ IV SCH ×3 (06:13→22:30)
[2021-09-24 08:00] VITALS: BP 105/56
[2021-09-24] MEDS: BUDESONIDE (INHALATION) 180 MCG IH IN SCH ×2 (08:13→17:46)
[2021-09-24 08:36] VITALS: BP 105/56
[2021-09-24] MEDS: METOPROLOL SUCCINATE XL 50 MG TAB PO SCH (10:00)
[2021-09-24] MEDS: PANTOPRAZOLE 40 MG/10 ML VIAL INJ IV SCH (10:30)
[2021-09-24] MEDS: ASPirin 81 mg TAB PO SCH (10:30)
[2021-09-24] MEDS: ZINC SULFATE 220mg CAP or TAB PO SCH (10:31)
[2021-09-24] MEDS: AMIODARONE HCL 200 MG TAB PO SCH (10:32)
[2021-09-24] MEDS: IVERMECTIN 3 MG TAB PO SCH (10:33)
[2021-09-24] MEDS: ISOSORBIDE MONONITRATE 20 MG TAB PO SCH ×2 (10:33→22:31)
[2021-09-24] MEDS: CHOLECALCIFEROL (VITD3) 2,000 UNIT CAP/TAB PO SCH (10:34)
[2021-09-24] MEDS: ASCORBIC ACID 500 MG TAB PO SCH ×2 (10:34→22:31)
[2021-09-24] MEDS: ENOXAPARIN SOD 100 MG/1 ML SYRINGE SC SCH ×2 (10:35→22:32)
[2021-09-24] MEDS: ALLOPURINOL 100 MG TAB PO SCH (10:35)
[2021-09-24 11:55] LABS: Basophils # (auto) 0 10 ^3/uL (0-0.2); Basophils % (auto) 0.1 % (0.0-2.0); Eosinophils # (auto) 0 10 ^3/uL (0-0.8); Lymphocytes # (auto) 0.2 10 ^3/uL (0.4-5.4); Monocytes # (auto) 0.2 10 ^3/uL (0-1.3); Neutrophils # (auto) 8.6 10 ^3/uL (1.6-8.6); Nucleated Red Blood Cells % 0.2 %
[2021-09-24 11:57] LABS: Hematocrit 31.5 % (41.0-53.0); Lymphocytes % (auto) 2.5 % (10.0-50.0); Mean Corpuscular Hemoglobin 25.6 pg (28.0-32.0); Mean Corpuscular Hgb Conc. 31.6 g/dL (32.0-36.0); Mean Corpuscular Volume 80.9 fL (80.0-100.0); Monocytes % (auto) 2.2 % (0.0-12.0); Neutrophils % (auto) 95.2 % (37.0-80.0); Red Cell Distribution Width 19.7 % (11.8-14.3)
[2021-09-24 12:07] LABS: Albumin 1.9 g/dL (3.4-5.0); Calcium 8.7 mg/dL (8.5-10.1); Potassium 5.3 mmol/L (3.5-5.1)
[2021-09-24 12:20] LABS: Bilirubin, Total 0.7 mg/dL (0.2-1.0); Total Protein 6.6 g/dL (6.4-8.2)
[2021-09-24 13:04] VITALS: BP 110/65
[2021-09-24] MEDS: REMDESIVIR 100mg 100 MG in SODIUM CHL 0.9% 230 ML IV SCH (15:30)
[2021-09-24 16:38] VITALS: BP 133/46
[2021-09-24 22:00] VITALS: BP 128/43
[2021-09-24] MEDS: ATORVASTATIN 20 MG TAB PO SCH (22:31)
[2021-09-25 05:30] VITALS: BP 123/71
[2021-09-25] MEDS: DexAMETHasone SOD PHOS 10MG/1ML VIAL INJ IV SCH ×3 (06:05→21:49)
[2021-09-25] MEDS: BUDESONIDE (INHALATION) 180 MCG IH IN SCH ×2 (06:08→20:23)
[2021-09-25] MEDS: IPRATROPIUM BROMIDE HFA AER IN SCH ×3 (06:08→20:23)
[2021-09-25] MEDS: ACCU-CHEK COMFORT CURVE STRIP VI SCH ×4 (06:55→21:51)
[2021-09-25] MEDS: InsuLIN REG 1unit/0.01ml Soln (100units/ml) SC SCH ×4 (06:57→22:25)
[2021-09-25 07:12] LABS: Basophils # (auto) 0 10 ^3/uL (0-0.2); Basophils % (auto) 0.1 % (0.0-2.0); Eosinophils # (auto) 0 10 ^3/uL (0-0.8); Hematocrit 30.9 % (41.0-53.0); Hemoglobin 10.1 g/dL (13.5-17.5); Lymphocytes # (auto) 0.2 10 ^3/uL (0.4-5.4); Lymphocytes % (auto) 2.8 % (10.0-50.0); Mean Corpuscular Hemoglobin 25.5 pg (28.0-32.0); Mean Corpuscular Hgb Conc. 32.7 g/dL (32.0-36.0); Mean Corpuscular Volume 77.8 fL (80.0-100.0); Monocytes # (auto) 0.2 10 ^3/uL (0-1.3); Neutrophils % (auto) 95.1 % (37.0-80.0); Nucleated Red Blood Cells % 0.3 %; Red Blood Cells 3.98 10^6/uL (4.5-5.90); Red Cell Distribution Width 19.5 % (11.8-14.3); White Blood Cell 8.4 10^3/uL (4.4-10.8)
[2021-09-25 08:13] LABS: Bilirubin, Total 0.5 mg/dL (0.2-1.0); Calcium 8.3 mg/dL (8.5-10.1); Potassium 4.3 mmol/L (3.5-5.1); Total Protein 5.5 g/dL (6.4-8.2)
[2021-09-25 09:00] VITALS: BP 133/79
[2021-09-25] MEDS: ISOSORBIDE MONONITRATE 20 MG TAB PO SCH ×2 (10:00→21:50)
[2021-09-25] MEDS: ZINC SULFATE 220mg CAP or TAB PO SCH (10:41)
[2021-09-25] MEDS: PANTOPRAZOLE 40 MG/10 ML VIAL INJ IV SCH (10:41)
[2021-09-25] MEDS: ASPirin 81 mg TAB PO SCH (10:41)
[2021-09-25] MEDS: IVERMECTIN 3 MG TAB PO SCH (10:42)
[2021-09-25] MEDS: CHOLECALCIFEROL (VITD3) 2,000 UNIT CAP/TAB PO SCH (10:42)
[2021-09-25] MEDS: ASCORBIC ACID 500 MG TAB PO SCH ×2 (10:42→21:51)
[2021-09-25] MEDS: ENOXAPARIN SOD 100 MG/1 ML SYRINGE SC SCH ×2 (10:43→21:51)
[2021-09-25] MEDS: ALLOPURINOL 100 MG TAB PO SCH (10:43)
[2021-09-25] MEDS: METOPROLOL SUCCINATE XL 50 MG TAB PO SCH (11:12)
[2021-09-25] MEDS: AMIODARONE HCL 200 MG TAB PO SCH (11:13)
[2021-09-25 13:00] VITALS: BP 122/70
[2021-09-25] MEDS ORDERED: DOCUSATE SOD 100 MG CAP PO ONE (15:15)
[2021-09-25] MEDS: REMDESIVIR 100mg 100 MG in SODIUM CHL 0.9% 230 ML IV SCH (15:44)
[2021-09-25 17:00] VITALS: BP 137/62
[2021-09-25] MEDS: DOCUSATE SOD 100 MG CAP PO SCH (21:49)
[2021-09-25] MEDS: ATORVASTATIN 20 MG TAB PO SCH (21:51)
[2021-09-25 22:00] VITALS: BP 133/46
[2021-09-26 05:22] VITALS: BP 101/52
[2021-09-26] MEDS: DexAMETHasone SOD PHOS 10MG/1ML VIAL INJ IV SCH ×3 (06:25→22:35)
[2021-09-26] MEDS: ACCU-CHEK COMFORT CURVE STRIP VI SCH ×4 (06:25→22:00)
[2021-09-26] MEDS: InsuLIN REG 1unit/0.01ml Soln (100units/ml) SC SCH ×4 (06:58→22:45)
[2021-09-26 09:00] VITALS: BP 118/66
[2021-09-26 09:33] LABS: Basophils # (auto) 0 10 ^3/uL (0-0.2); Basophils % (auto) 0.1 % (0.0-2.0); Eosinophils # (auto) 0 10 ^3/uL (0-0.8); Lymphocytes # (auto) 0.2 10 ^3/uL (0.4-5.4); Monocytes # (auto) 0.1 10 ^3/uL (0-1.3); Nucleated Red Blood Cells % 0.2 %
[2021-09-26 09:35] LABS: Hematocrit 31.4 % (41.0-53.0); Hemoglobin 10.1 g/dL (13.5-17.5); Lymphocytes % (auto) 3.3 % (10.0-50.0); Mean Corpuscular Hemoglobin 25.2 pg (28.0-32.0); Mean Corpuscular Hgb Conc. 32.2 g/dL (32.0-36.0); Mean Corpuscular Volume 78.4 fL (80.0-100.0); Monocytes % (auto) 1.6 % (0.0-12.0); Neutrophils # (auto) 6.2 10 ^3/uL (1.6-8.6); Red Blood Cells 4.01 10^6/uL (4.5-5.90); Red Cell Distribution Width 19.3 % (11.8-14.3); White Blood Cell 6.5 10^3/uL (4.4-10.8)
[2021-09-26 09:39] LABS: Albumin 1.9 g/dL (3.4-5.0); Potassium 4.4 mmol/L (3.5-5.1)
[2021-09-26 09:42] LABS: BUN/Creatinine Ratio 41.5; Bilirubin, Total 0.5 mg/dL (0.2-1.0); Total Protein 6.4 g/dL (6.4-8.2)
[2021-09-26] MEDS: PANTOPRAZOLE 40 MG/10 ML VIAL INJ IV SCH (09:45)
[2021-09-26] MEDS: ENOXAPARIN SOD 100 MG/1 ML SYRINGE SC SCH ×2 (09:45→22:37)
[2021-09-26] MEDS: AMIODARONE HCL 200 MG TAB PO SCH (09:46)
[2021-09-26] MEDS: ZINC SULFATE 220mg CAP or TAB PO SCH (09:46)
[2021-09-26] MEDS: ASPirin 81 mg TAB PO SCH (09:46)
[2021-09-26] MEDS: DOCUSATE SOD 100 MG CAP PO SCH ×2 (09:46→22:35)
[2021-09-26] MEDS: ISOSORBIDE MONONITRATE 20 MG TAB PO SCH ×2 (09:47→22:36)
[2021-09-26] MEDS: ASCORBIC ACID 500 MG TAB PO SCH ×2 (09:48→22:37)
[2021-09-26] MEDS: CHOLECALCIFEROL (VITD3) 2,000 UNIT CAP/TAB PO SCH (09:48)
[2021-09-26] MEDS: METOPROLOL SUCCINATE XL 50 MG TAB PO SCH (09:48)
[2021-09-26] MEDS: IVERMECTIN 3 MG TAB PO SCH (09:48)
[2021-09-26] MEDS: ALLOPURINOL 100 MG TAB PO SCH (09:49)
[2021-09-26] MEDS: BUDESONIDE (INHALATION) 180 MCG IH IN SCH ×2 (10:23→20:38)
[2021-09-26] MEDS: IPRATROPIUM BROMIDE HFA AER IN SCH ×3 (10:23→20:38)
[2021-09-26 13:00] VITALS: BP 134/77
[2021-09-26] MEDS: REMDESIVIR 100mg 100 MG in SODIUM CHL 0.9% 230 ML IV SCH (15:00)
[2021-09-26 17:00] VITALS: BP 119/54
[2021-09-26 21:30] VITALS: BP 140/64
[2021-09-26] MEDS: ATORVASTATIN 20 MG TAB PO SCH (22:36)
[2021-09-27 05:00] VITALS: BP 118/67
[2021-09-27] MEDS: IPRATROPIUM BROMIDE HFA AER IN SCH ×3 (06:00→19:45)
[2021-09-27] MEDS: ACCU-CHEK COMFORT CURVE STRIP VI SCH ×4 (06:57→22:47)
[2021-09-27] MEDS: InsuLIN REG 1unit/0.01ml Soln (100units/ml) SC SCH ×4 (06:58→22:48)
[2021-09-27 09:00] VITALS: BP 114/58
[2021-09-27] MEDS: BUDESONIDE (INHALATION) 180 MCG IH IN SCH ×2 (10:00→19:45)
[2021-09-27] MEDS: ISOSORBIDE MONONITRATE 20 MG TAB PO SCH ×2 (10:00→23:03)
[2021-09-27] MEDS: DexAMETHasone SOD PHOS 10MG/1ML VIAL INJ IV SCH ×2 (10:14→22:45)
[2021-09-27] MEDS: ASPirin 81 mg TAB PO SCH (10:15)
[2021-09-27] MEDS: DOCUSATE SOD 100 MG CAP PO SCH ×2 (10:15→22:46)
[2021-09-27] MEDS: ZINC SULFATE 220mg CAP or TAB PO SCH (10:15)
[2021-09-27] MEDS: PANTOPRAZOLE 40 MG/10 ML VIAL INJ IV SCH (10:15)
[2021-09-27 10:20] LABS: Albumin 1.8 g/dL (3.4-5.0); Calcium 8.6 mg/dL (8.5-10.1); Magnesium 3.9 mg/dL (1.6-2.6); Potassium 4.5 mmol/L (3.5-5.1)
[2021-09-27 10:24] LABS: BUN/Creatinine Ratio 39.9; Bilirubin, Total 0.5 mg/dL (0.2-1.0); Total Protein 6.3 g/dL (6.4-8.2)
[2021-09-27] MEDS: AMIODARONE HCL 200 MG TAB PO SCH (10:27)
[2021-09-27] MEDS: IVERMECTIN 3 MG TAB PO SCH (10:28)
[2021-09-27] MEDS: CHOLECALCIFEROL (VITD3) 2,000 UNIT CAP/TAB PO SCH (10:29)
[2021-09-27] MEDS: ALLOPURINOL 100 MG TAB PO SCH (10:29)
[2021-09-27] MEDS: ENOXAPARIN SOD 100 MG/1 ML SYRINGE SC SCH ×2 (10:29→22:47)
[2021-09-27] MEDS: ASCORBIC ACID 500 MG TAB PO SCH ×2 (10:29→22:46)
[2021-09-27] MEDS: METOPROLOL SUCCINATE XL 50 MG TAB PO SCH (10:45)
[2021-09-27 10:48] LABS: Basophils # (auto) 0 10 ^3/uL (0-0.2); Basophils % (auto) 0.1 % (0.0-2.0); Eosinophils # (auto) 0 10 ^3/uL (0-0.8); Lymphocytes # (auto) 0.3 10 ^3/uL (0.4-5.4); Monocytes # (auto) 0.1 10 ^3/uL (0-1.3); Monocytes % (auto) 2.2 % (0.0-12.0); Neutrophils # (auto) 6.1 10 ^3/uL (1.6-8.6); Red Cell Distribution Width 19.6 % (11.8-14.3); White Blood Cell 6.5 10^3/uL (4.4-10.8)
[2021-09-27 10:53] LABS: Hematocrit 30.1 % (41.0-53.0); Hemoglobin 9.6 g/dL (13.5-17.5); Lymphocytes % (auto) 4.2 % (10.0-50.0); Mean Corpuscular Hemoglobin 25.2 pg (28.0-32.0); Mean Corpuscular Volume 78.7 fL (80.0-100.0); Neutrophils % (auto) 93.5 % (37.0-80.0); Nucleated Red Blood Cells % 0.2 %; Red Blood Cells 3.83 10^6/uL (4.5-5.90)
[2021-09-27 13:00] VITALS: BP 126/49
[2021-09-27 17:19] VITALS: BP 102/59
[2021-09-27] MEDS: SODIUM CHLORIDE 0.9% 1,000 ML IV SCH ×2 (17:53→22:45)
[2021-09-27 22:00] VITALS: BP 115/68
[2021-09-27] MEDS: ATORVASTATIN 20 MG TAB PO SCH (22:46)
[2021-09-28] MEDS: SODIUM CHLORIDE 0.9% 1,000 ML IV SCH ×2 (04:40→11:30)
[2021-09-28 05:12] VITALS: BP 133/64
[2021-09-28] MEDS: IPRATROPIUM BROMIDE HFA AER IN SCH ×3 (06:00→19:50)
[2021-09-28] MEDS: ACCU-CHEK COMFORT CURVE STRIP VI SCH ×4 (06:09→22:53)
[2021-09-28] MEDS: InsuLIN REG 1unit/0.01ml Soln (100units/ml) SC SCH ×4 (06:11→22:54)
[2021-09-28] MEDS: BUDESONIDE (INHALATION) 180 MCG IH IN SCH ×2 (08:38→19:50)
[2021-09-28 09:00] VITALS: BP 104/49
[2021-09-28] MEDS: DexAMETHasone SOD PHOS 10MG/1ML VIAL INJ IV SCH (09:43)
[2021-09-28] MEDS: IVERMECTIN 3 MG TAB PO SCH (09:43)
[2021-09-28] MEDS: PANTOPRAZOLE 40 MG/10 ML VIAL INJ IV SCH (09:43)
[2021-09-28] MEDS: DOCUSATE SOD 100 MG CAP PO SCH ×2 (09:43→22:49)
[2021-09-28] MEDS: AMIODARONE HCL 200 MG TAB PO SCH (09:43)
[2021-09-28] MEDS: ZINC SULFATE 220mg CAP or TAB PO SCH (09:43)
[2021-09-28] MEDS: ASPirin 81 mg TAB PO SCH (09:43)
[2021-09-28] MEDS: ASCORBIC ACID 500 MG TAB PO SCH ×2 (09:43→22:52)
[2021-09-28] MEDS: CHOLECALCIFEROL (VITD3) 2,000 UNIT CAP/TAB PO SCH (09:44)
[2021-09-28] MEDS: ENOXAPARIN SOD 100 MG/1 ML SYRINGE SC SCH ×2 (09:44→22:52)
[2021-09-28] MEDS: ALLOPURINOL 100 MG TAB PO SCH (09:44)
[2021-09-28] MEDS: METOPROLOL SUCCINATE XL 50 MG TAB PO SCH (10:00)
[2021-09-28] MEDS: ISOSORBIDE MONONITRATE 20 MG TAB PO SCH ×2 (10:00→22:52)
[2021-09-28 12:00] LABS: Albumin 1.6 g/dL (3.4-5.0); Calcium 8.1 mg/dL (8.5-10.1); Potassium 5.1 mmol/L (3.5-5.1)
[2021-09-28] MEDS: Glucerna Carbsteady SHAKE Vanilla 8oz PO SCH ×2 (12:00→16:26)
[2021-09-28 12:04] LABS: BUN/Creatinine Ratio 48.6; Bilirubin, Total 0.5 mg/dL (0.2-1.0); Total Protein 6.3 g/dL (6.4-8.2)
[2021-09-28 12:09] LABS: Basophils # (auto) 0 10 ^3/uL (0-0.2); Eosinophils # (auto) 0 10 ^3/uL (0-0.8); Hemoglobin 10.2 g/dL (13.5-17.5); Lymphocytes # (auto) 0.2 10 ^3/uL (0.4-5.4); Lymphocytes % (auto) 2.6 % (10.0-50.0); Monocytes # (auto) 0.2 10 ^3/uL (0-1.3)
[2021-09-28 12:11] LABS: Basophils % (auto) 0.3 % (0.0-2.0); Eosinophils % (auto) 0.3 % (0.0-7.0); Mean Corpuscular Hemoglobin 25.5 pg (28.0-32.0); Mean Corpuscular Hgb Conc. 31.8 g/dL (32.0-36.0); Monocytes % (auto) 2.6 % (0.0-12.0); Neutrophils # (auto) 7.4 10 ^3/uL (1.6-8.6); Neutrophils % (auto) 94.2 % (37.0-80.0); Nucleated Red Blood Cells % 0.5 %; Red Cell Distribution Width 20.2 % (11.8-14.3); White Blood Cell 7.8 10^3/uL (4.4-10.8)
[2021-09-28 13:00] VITALS: BP 135/67
[2021-09-28 17:00] VITALS: BP 109/52
[2021-09-28 21:49] VITALS: BP 134/74
[2021-09-28] MEDS: ATORVASTATIN 20 MG TAB PO SCH (22:52)
[2021-09-29 04:48] VITALS: BP 117/59
[2021-09-29] MEDS: ACCU-CHEK COMFORT CURVE STRIP VI SCH ×4 (06:06→22:58)
[2021-09-29] MEDS: InsuLIN REG 1unit/0.01ml Soln (100units/ml) SC SCH ×4 (06:07→23:06)
[2021-09-29] MEDS: IPRATROPIUM BROMIDE HFA AER IN SCH ×2 (06:10→22:00)
[2021-09-29] MEDS: BUDESONIDE (INHALATION) 180 MCG IH IN SCH ×2 (06:10→22:00)
[2021-09-29 06:54] LABS: Basophils # (auto) 0.1 10 ^3/uL (0-0.2); Eosinophils # (auto) 0 10 ^3/uL (0-0.8); Eosinophils % (auto) 0.2 % (0.0-7.0); Hematocrit 35.2 % (41.0-53.0); Lymphocytes # (auto) 0.5 10 ^3/uL (0.4-5.4); Lymphocytes % (auto) 5.1 % (10.0-50.0); Mean Corpuscular Hemoglobin 24.6 pg (28.0-32.0); Mean Corpuscular Hgb Conc. 31.2 g/dL (32.0-36.0); Mean Corpuscular Volume 78.9 fL (80.0-100.0); Monocytes # (auto) 0.1 10 ^3/uL (0-1.3); Monocytes % (auto) 1.5 % (0.0-12.0); Neutrophils # (auto) 8.1 10 ^3/uL (1.6-8.6); Neutrophils % (auto) 92.2 % (37.0-80.0); Nucleated Red Blood Cells % 0.7 %; Red Blood Cells 4.46 10^6/uL (4.5-5.90); White Blood Cell 8.8 10^3/uL (4.4-10.8)
[2021-09-29 07:13] LABS: Alanine Aminotransferase 21 U/L (16-61); Albumin 1.7 g/dL (3.4-5.0); Anion Gap 7 (5-15); Aspartate Aminotransferase 32 U/L (15-37); Blood Urea Nitrogen 46 mg/dL (7-18); Calcium 8.5 mg/dL (8.5-10.1); Carbon Dioxide 17 mmol/L (21-32); Chloride 117 mmol/L (98-107); GFR African American 82 mL/min; GFR Non-African American 68 mL/min; Glucose 200 mg/dL (74-106); Magnesium 2.7 mg/dL (1.6-2.6); Potassium 5.3 mmol/L (3.5-5.1); Sodium 141 mmol/L (136-145)
[2021-09-29 07:16] LABS: Alkaline Phosphatase 246 U/L (45-117); Bilirubin, Total 0.6 mg/dL (0.2-1.0); Total Protein 6.5 g/dL (6.4-8.2)
[2021-09-29] MEDS: SODIUM CHLORIDE 0.9% 1,000 ML IV SCH (07:30)
[2021-09-29] MEDS: Glucerna Carbsteady SHAKE Vanilla 8oz PO SCH ×3 (08:00→16:30)
[2021-09-29 09:00] VITALS: BP 127/58
[2021-09-29] MEDS: METOPROLOL SUCCINATE XL 50 MG TAB PO SCH (10:00)
[2021-09-29] MEDS: ASPirin 81 mg TAB PO SCH (10:00)
[2021-09-29] MEDS: DOCUSATE SOD 100 MG CAP PO SCH ×2 (10:00→22:00)
[2021-09-29] MEDS: AMIODARONE HCL 200 MG TAB PO SCH (10:00)
[2021-09-29] MEDS: IVERMECTIN 3 MG TAB PO SCH (10:00)
[2021-09-29] MEDS: ALLOPURINOL 100 MG TAB PO SCH (10:00)
[2021-09-29] MEDS: CHOLECALCIFEROL (VITD3) 2,000 UNIT CAP/TAB PO SCH (10:00)
[2021-09-29] MEDS: ASCORBIC ACID 500 MG TAB PO SCH ×2 (10:00→22:00)
[2021-09-29] MEDS: ZINC SULFATE 220mg CAP or TAB PO SCH (10:00)
[2021-09-29] MEDS: ISOSORBIDE MONONITRATE 20 MG TAB PO SCH ×2 (10:00→22:00)
[2021-09-29] MEDS: DexAMETHasone SOD PHOS 10MG/1ML VIAL INJ IV SCH (10:08)
[2021-09-29] MEDS: PANTOPRAZOLE 40 MG/10 ML VIAL INJ IV SCH (10:08)
[2021-09-29] MEDS: ENOXAPARIN SOD 100 MG/1 ML SYRINGE SC SCH ×2 (10:09→23:01)
[2021-09-29] MEDS ORDERED: SUCCINYLCHOLINE CHLORIDE 20 MG/ML 10ML VIAL IV ONE (12:48)
[2021-09-29] MEDS ORDERED: ETOMIDATE (2MG/ML) 20ML VIAL IV ONE (12:49)
[2021-09-29] MEDS ORDERED: ROCURONIUM 10MG/ML 10ML VIAL IV ONE (12:50)
[2021-09-29 13:00] VITALS: BP 114/53
[2021-09-29] MEDS: LORazepam 2MG/ML-1ML VIAL IV PRN (16:31)
[2021-09-29 16:58] VITALS: BP 111/71
[2021-09-29 21:58] VITALS: BP 121/72
[2021-09-29] MEDS: ATORVASTATIN 20 MG TAB PO SCH (22:00)
[2021-09-30] MEDS: LORazepam 2MG/ML-1ML VIAL IV PRN ×2 (02:19→14:00)
[2021-09-30] MEDS: SODIUM CHLORIDE 0.9% 1,000 ML IV SCH (03:30)
[2021-09-30 04:57] VITALS: BP 122/64
[2021-09-30 05:37] LABS: Basophils # (auto) 0 10 ^3/uL (0-0.2); Eosinophils # (auto) 0 10 ^3/uL (0-0.8); Eosinophils % (auto) 0.2 % (0.0-7.0); Hematocrit 29.3 % (41.0-53.0); Hemoglobin 9.4 g/dL (13.5-17.5); Lymphocytes # (auto) 0.2 10 ^3/uL (0.4-5.4); Mean Corpuscular Volume 78.3 fL (80.0-100.0); Monocytes # (auto) 0.2 10 ^3/uL (0-1.3); Red Blood Cells 3.74 10^6/uL (4.5-5.90)
[2021-09-30 05:40] LABS: Basophils % (auto) 0.3 % (0.0-2.0); Lymphocytes % (auto) 2.1 % (10.0-50.0); Mean Corpuscular Hemoglobin 25.2 pg (28.0-32.0); Mean Corpuscular Hgb Conc. 32.2 g/dL (32.0-36.0); Monocytes % (auto) 2.4 % (0.0-12.0); Neutrophils # (auto) 9.4 10 ^3/uL (1.6-8.6); Nucleated Red Blood Cells % 0.2 %; Red Cell Distribution Width 20.1 % (11.8-14.3); White Blood Cell 9.9 10^3/uL (4.4-10.8)
[2021-09-30] MEDS: BUDESONIDE (INHALATION) 180 MCG IH IN SCH (05:44)
[2021-09-30] MEDS: IPRATROPIUM BROMIDE HFA AER IN SCH ×2 (05:44→14:20)
[2021-09-30 05:57] LABS: Calcium 8.4 mg/dL (8.5-10.1); Potassium 4.9 mmol/L (3.5-5.1)
[2021-09-30 06:02] LABS: Albumin 1.6 g/dL (3.4-5.0); BUN/Creatinine Ratio 43.9; Bilirubin, Total 0.4 mg/dL (0.2-1.0); Magnesium 3.7 mg/dL (1.6-2.6); Total Protein 5.9 g/dL (6.4-8.2)
[2021-09-30] MEDS: ACCU-CHEK COMFORT CURVE STRIP VI SCH ×3 (06:34→18:30)
[2021-09-30] MEDS: InsuLIN REG 1unit/0.01ml Soln (100units/ml) SC SCH ×3 (06:36→17:00)
[2021-09-30 08:00] VITALS: BP 114/98
[2021-09-30] MEDS: Glucerna Carbsteady SHAKE Vanilla 8oz PO SCH ×3 (08:00→18:00)
[2021-09-30] MEDS ORDERED: SOD CHL 0.45% 1,000 ML IV SCH (09:15)
[2021-09-30] MEDS: AMIODARONE HCL 200 MG TAB PO SCH (10:00)
[2021-09-30] MEDS: ISOSORBIDE MONONITRATE 20 MG TAB PO SCH (10:00)
[2021-09-30] MEDS: ASPirin 81 mg TAB PO SCH (10:00)
[2021-09-30] MEDS: CHOLECALCIFEROL (VITD3) 2,000 UNIT CAP/TAB PO SCH (10:00)
[2021-09-30] MEDS: ALLOPURINOL 100 MG TAB PO SCH (10:00)
[2021-09-30] MEDS: ASCORBIC ACID 500 MG TAB PO SCH (10:00)
[2021-09-30] MEDS: ZINC SULFATE 220mg CAP or TAB PO SCH (10:00)
[2021-09-30] MEDS: METOPROLOL SUCCINATE XL 50 MG TAB PO SCH (10:00)
[2021-09-30] MEDS: DOCUSATE SOD 100 MG CAP PO SCH (10:00)
[2021-09-30] MEDS: IVERMECTIN 3 MG TAB PO SCH (10:00)
[2021-09-30] MEDS: DexAMETHasone SOD PHOS 10MG/1ML VIAL INJ IV SCH (11:03)
[2021-09-30] MEDS: ENOXAPARIN SOD 100 MG/1 ML SYRINGE SC SCH (11:04)
[2021-09-30] MEDS: PANTOPRAZOLE 40 MG/10 ML VIAL INJ IV SCH (11:04)
[2021-09-30 12:00] VITALS: BP 92/57
[2021-09-30 16:01] VITALS: BP 111/70
[2021-09-30] MEDS ORDERED: LORazepam 2MG/ML-1ML VIAL IV PRN (17:45)
[2021-09-30] MEDS ORDERED: SUCCINYLCHOLINE CHLORIDE 20 MG/ML 10ML VIAL IV ONE ×2 (18:56→19:42)
[2021-09-30] MEDS ORDERED: ROCURONIUM 10MG/ML 10ML VIAL IV ONE ×2 (18:56→19:42)
[2021-09-30] MEDS ORDERED: ETOMIDATE (2MG/ML) 20ML VIAL IV ONE ×2 (18:56→19:42)
[2021-09-30] MEDS ORDERED: MIDAZOLAM DRIP 50 mg/50mL 100 ML IV ONE (19:43)
[2021-09-30] MEDS ORDERED: MIDAZOLAM DRIP 50 mg/50mL 50 ML IV ONE (19:48)
[2021-09-30] MEDS ORDERED: NOREPINEPHRINE 8 MG/250ML KIT 250 ML IV ONE (20:14)
[2021-09-30] MEDS ORDERED: BUDESONIDE (INHALATION) 0.5 MG/2 ML NEB NEB SCH (22:00)
[2021-09-30] MEDS ORDERED: IPRATROPIUM BROM 0.5 MG/2.5ML INH SOL NEB SCH (22:00)
[2021-10-01] MEDS ORDERED: EPINEPHrine HCL 1 MG/10 ML SYRG IV ONE (22:14)
[2021-10-01] MEDS ORDERED: SODIUM BICARBONATE 8.4% INJ 50ML SYRINGE IV ONE (22:14)
== END 2021-09-30 20:27 | DRG 177 ==
LOC: ER 09:58 → EDBD 09:58 → TELE 12:26 → TELE-EAST 09-14 20:25 → TELE-E-ADS 09-27 02:30
PROVIDERS: ADMIT Hospitalist; ATTEND Internal Medicine Geriatric Medicine
PROC: XW033E5 Introduction of Remdesivir Anti-infective into Peripheral Vein, Percutaneous Approach, New Technology Group 5 (ICD-10-PCS; principal; 2021-09-21)
PROC: 5A0945A Assistance with Respiratory Ventilation, 24-96 Consecutive Hours, High Flow/Velocity Cannula (ICD-10-PCS; 2021-09-27)
PROC: 5A09457 Assistance with Respiratory Ventilation, 24-96 Consecutive Hours, Continuous Positive Airway Pressure (ICD-10-PCS; 2021-09-29)
PROC: 5A12012 Performance of Cardiac Output, Single, Manual (ICD-10-PCS; 2021-09-30)
DX: U07.1 COVID-19 (principal); A41.89 Other specified sepsis; J12.82 Pneumonia due to coronavirus disease 2019; J96.01 Acute respiratory failure with hypoxia; I82.509 Chronic embolism and thrombosis of unspecified deep veins of unspecified lower extremity; N18.4 Chronic kidney disease, stage 4 (severe); I47.2 Ventricular tachycardia; J98.11 Atelectasis; N17.9 Acute kidney failure, unspecified; E87.5 Hyperkalemia; I25.5 Ischemic cardiomyopathy; E66.01 Morbid (severe) obesity due to excess calories; D64.9 Anemia, unspecified; E88.09 Other disorders of plasma-protein metabolism, not elsewhere classified; I46.9 Cardiac arrest, cause unspecified; I48.91 Unspecified atrial fibrillation; E78.5 Hyperlipidemia, unspecified; E11.22 Type 2 diabetes mellitus with diabetic chronic kidney disease; I12.9 Hypertensive chronic kidney disease with stage 1 through stage 4 chronic kidney disease, or unspecified chronic kidney disease; E11.42 Type 2 diabetes mellitus with diabetic polyneuropathy; K75.81 Nonalcoholic steatohepatitis (NASH); M1A.9XX0 Chronic gout, unspecified, without tophus (tophi); E86.0 Dehydration; I25.10 Atherosclerotic heart disease of native coronary artery without angina pectoris; Z68.29 Body mass index [BMI] 29.0-29.9, adult; Z95.5 Presence of coronary angioplasty implant and graft
CPT/HCPCS: 36415; 36600; 71045; 73080; 73562; 76881; 80048; 80053; 80061; 81001; 82550; 82805; 82962; 83036; 83735; 83880; 84132; 84443; 84484; 84550; 85025; 85610; 85730; 86850; 86900; 86901; 87040; 87086; 87426; 93005; 94640; 94660; 96361; 96374; 96375; 97110; 97116; 97163; 97530; C9113; G0378; J0330; J1100; J1815; J2250; J7060; P9047